=== PATIENT | female | born 1965 | race Hispanic/Latino ===

== ENCOUNTER 2017-11-06 20:16 | Emergency (ER) | payer SELFPAY ==
[2017-11-06] MEDS: OXYCODONE/APAP 5MG/325MG(BULK FOR ED) 1 TABLET PO (23:07)
== END 2017-11-06 23:11 | disposition home or self-care (01) ==
LOC: M ED 20:16
DX: R03.0 Elevated blood-pressure reading, without diagnosis of hypertension (principal); M54.5 Low back pain; M54.6 Pain in thoracic spine; X50.9XXA Other and unspecified overexertion or strenuous movements or postures, initial encounter; Y92.59 Other trade areas as the place of occurrence of the external cause; Y99.0 Civilian activity done for income or pay; E11.9 Type 2 diabetes mellitus without complications; Z88.0 Allergy status to penicillin
CPT/HCPCS: 99284

== ENCOUNTER → 2019-04-14 | Outpatient (CLI) | payer SELFPAY, OTHER ==
[~2019-04-14] MED LIST: IBUP80TA PO; PERC5TAB12 PO
[2019-04-14 10:36] LABS: HEMOGLOBIN A1c 11.7 %
[2019-04-14 11:04] LABS: ALT/SGPT 34 U/L (12-78); BILIRUBIN,TOTAL 0.2 MG/DL (0.2-1.0); BLOOD UREA NITROGEN 40 MG/DL (7-18); CALCIUM LEVEL 9.1 MG/DL (8.5-10.1); CARBON DIOXIDE LEVEL 28 MEQ/L (21-32); CHLORIDE LEVEL 96 MEQ/L (98-107); CHOLESTEROL LEVEL 206 MG/DL (<200); CHOLESTEROL RISK RATIO 5.722 (<5); CK-MB VALUE MASS 2.9 NG/ML (<3.6); CPK CREATINE PHOSPHOKINASE 128 U/L (26-192); CREATININE FOR GFR 1.64 MG/DL (0.55-1.30); GLOMERULAR FILTRATION RATE 34.8 (>51); GLUCOSE, FASTING 356 MG/DL (70-100); HDL CHOLESTEROL 36 MG/DL (>40); MB/CK RELATIVE INDEX 2.27 (< OR =4); NON-HDL-C 170 MG/DL; POTASSIUM SERUM 4.6 MEQ/L (3.5-5.1); SODIUM LEVEL 133 MEQ/L (136-145); TOTAL PROTEIN 6.8 GM/DL (6.4-8.2); TRIGLYCERIDES LEVEL 548 MG/DL (<150)
[2019-04-14 11:25] LABS: CREATININE, URINE 30.2 MG/DL
[2019-04-14 13:43] LABS: FREE T4 1.06 NG/DL (0.76-1.46)
== END ==
LOC: M PLALAB 08:14
PROVIDERS: ATTEND Nurse Practitioner Family
DX: R79.89 Other specified abnormal findings of blood chemistry (principal); E78.5 Hyperlipidemia, unspecified; E11.22 Type 2 diabetes mellitus with diabetic chronic kidney disease

== ENCOUNTER 2019-05-26 01:04 | Emergency (ER) | payer OTHER, SELFPAY ==
[~2019-05-26] VITALS: Ht 157.5 cm; Wt 88.3 kg
[2019-05-26] MEDS ORDERED: NAPROXEN 250 MG TAB PO ONE (05:15)
[2019-05-26] MEDS ORDERED: NAPR-837 PO (05:19)
[2019-05-26 05:53] VITALS: BP 142/79
--- NOTE | 2019-05-26 09:19 | REP ---
RIGHT ANKLE: Five views. HISTORY: Trauma. FINDINGS: Five views of the right ankle demonstrate a fairly marked diffuse swelling medially, laterally and anteriorly. There is Achilles and plantar calcaneal spurring. On the steep oblique view, there is a cortical disruption of the anterolateral surface of what I believe it is the medial malleolus. There is overlap here with the adjacent fibula. No other view shows a fracture. Ankle mortise is intact. No hindfoot fracture is seen. IMPRESSION: Nondisplaced and possibly incomplete fracture of the medial malleolus visible on only one view. There is fairly marked diffuse ankle swelling. Electronically Signed by Zeke Mcgill MD 05/26/2019 06:31 P
--- NOTE | 2019-05-30 13:15 | ED PDOC ---
Post-Departure Follow-Up Ammy Heredia, ED grit blaster, asked to call pt to review right ankle film, ask pt t o continue w crutches/splint, and to fu w ortho. formal report faxed to [facility]. Paula Flood MD May 30, 2019 13:15
== END 2019-05-26 05:53 | disposition home or self-care (01) ==
LOC: M ED 01:04
DX: S99.911A Unspecified injury of right ankle, initial encounter (principal); W22.8XXA Striking against or struck by other objects, initial encounter; Y92.89 Other specified places as the place of occurrence of the external cause; Y93.9 Activity, unspecified; Y99.0 Civilian activity done for income or pay; Z88.0 Allergy status to penicillin

== ENCOUNTER 2019-10-08 00:11 | Emergency (ER) | payer SELFPAY ==
[~2019-10-08] VITALS: Ht 157.5 cm; Wt 86.4 kg
[~2019-10-08 00:11] MED LIST changes: +NAPR-837 PO
[2019-10-08] MEDS ORDERED: NOVOINJ13 SUBQ (00:19)
[2019-10-08] MEDS ORDERED: SIMV20TA22 PO (00:21)
[2019-10-08] MEDS ORDERED: AMLO1TAB24 PO (00:21)
[2019-10-08] MEDS ORDERED: NAPROXEN 250 MG TAB PO ONE (02:00)
[2019-10-08] MEDS ORDERED: LIDOCAINE 4% CREAM 5GM (LMX4) TOP ONE (02:00)
--- NOTE | 2019-10-08 02:26 | REPVR ---
PROCEDURE INFORMATION: Exam: US Duplex Right Lower Extremity Veins, Limited Exam date and time: 10/08/2019 2:18 AM Age: 54 years old Clinical indication: Pain; Foot; Right; Additional info: Calf pain, walks all day TECHNIQUE: Imaging protocol: Real-time Duplex ultrasound of the Right Lower Extremity with 2-D arenas scale, color Doppler flow and spectral waveform analysis with image documentation. Limited exam was focused on the right lower extremity veins. COMPARISON: No relevant prior studies available. FINDINGS: Right deep veins: Unremarkable. The common femoral, femoral, proximal profunda femoral and popliteal veins are patent without thrombus. Normal Doppler waveforms. Normal compressibility and/or augmentation response. Right superficial veins: Unremarkable. Saphenofemoral junction is patent without thrombus. Soft tissues: Unremarkable. IMPRESSION: No evidence of deep vein thrombosis. Electronically signed by: Andrew Salas On 10/08/2019 02:25:53 AM
[2019-10-08] MEDS ORDERED: ASPE16CR TOP (03:09)
[2019-10-08] MEDS ORDERED: NAPR-837 PO (03:09)
[2019-10-08 03:23] VITALS: BP 128/72
== END 2019-10-08 03:28 | disposition home or self-care (01) ==
LOC: M ED 00:11
DX: M25.561 Pain in right knee (principal); M25.571 Pain in right ankle and joints of right foot; E11.9 Type 2 diabetes mellitus without complications; I10 Essential (primary) hypertension; Z79.4 Long term (current) use of insulin; Z79.899 Other long term (current) drug therapy; Z88.0 Allergy status to penicillin

== ENCOUNTER → 2021-01-07 | Outpatient (REF) | payer SELFPAY ==
[~2021-01-07] MED LIST changes: +AMLO1TAB24 PO; +ASPE16CR TOP; +NOVOINJ13 SUBQ; +SIMV20TA22 PO
[2021-01-07 22:19] LABS: HEMOGLOBIN A1c 12.7 %
== END ==
LOC: M LAB REF 21:46
PROVIDERS: ATTEND Physician Assistant Medical
DX: E11.9 Type 2 diabetes mellitus without complications (principal)

== ENCOUNTER → 2021-01-31 | Outpatient (CLI) | payer BC, MEDICAID ==
[2021-01-31 15:41] LABS: BASO # 0.1 10^3/uL (0.0-0.2); BASO % 0.6 % (0.0-1.0); EOS # 0.5 10^3/uL (0.0-0.5); EOS % 6.1 % (0.0-3.0); HEMATOCRIT 36.8 % (36.0-47.0); HEMOGLOBIN 12.4 g/dl (12.0-15.5); LYMPH # 2.7 10^3/uL (1.5-5.0); LYMPH % 33.5 % (24.0-44.0); MEAN CORPUSCULAR HEMOGLOBIN 29.2 pg (27.0-33.0); MEAN CORPUSCULAR HGB CONC 33.7 g/dl (32.0-36.5); MEAN CORPUSCULAR VOLUME 86.6 fl (80.0-96.0); MONO # 0.7 10^3/uL (0.0-0.8); MONO % 8.9 % (2.0-8.0); NEUTROPHILS # 4.1 10^3/uL (1.5-8.5); NEUTROPHILS % 50.3 % (36.0-66.0); PLATELET COUNT, AUTOMATED 309 10^3/uL (150-450); RED BLOOD COUNT 4.25 10^6/uL (4.00-5.40); WHITE BLOOD COUNT 8.1 10^3/uL (4.0-10.0)
[2021-01-31 16:14] LABS: ALBUMIN 2.7 GM/DL (3.2-5.2); BILIRUBIN,TOTAL 0.2 MG/DL (0.2-1.0); CALCIUM LEVEL 9.2 MG/DL (8.5-10.1); CHOLESTEROL RISK RATIO 4.375 (<5); CREATININE FOR GFR 2.75 MG/DL (0.55-1.30); FREE T4 0.98 NG/DL (0.76-1.46); THYROID STIMULATING HORMONE 8.58 uIU/ML (0.358-3.740); TOTAL PROTEIN 6.5 GM/DL (6.4-8.2)
[2021-01-31 16:39] LABS: CREATININE, URINE 32.1 MG/DL; MAU/CREAT RATIO 6760.1 MCG/MG (0.0-30.0)
== END ==
LOC: M PLALAB 12:12
PROVIDERS: ATTEND Nurse Practitioner Family
DX: E11.9 Type 2 diabetes mellitus without complications (principal)

== ENCOUNTER → 2021-05-09 | Outpatient (CLI) | payer BC ==
[2021-05-09 13:52] LABS: ALBUMIN 3.3 GM/DL (3.2-5.2); BILIRUBIN,TOTAL 0.2 MG/DL (0.2-1.0); CALCIUM LEVEL 8.6 MG/DL (8.5-10.1); CHOLESTEROL RISK RATIO 3.803 (<5); CREATININE FOR GFR 3.16 MG/DL (0.55-1.30); GLOMERULAR FILTRATION RATE 16.2 (>51); POTASSIUM SERUM 3.8 MEQ/L (3.5-5.1); TOTAL PROTEIN 6.9 GM/DL (6.4-8.2)
[2021-05-09 13:59] LABS: HEMOGLOBIN A1c 8.1 %
[2021-05-09 14:27] LABS: CREATININE, URINE 18.1 MG/DL
== END ==
LOC: M PLALAB 10:21
PROVIDERS: ATTEND Nurse Practitioner Family
DX: E11.22 Type 2 diabetes mellitus with diabetic chronic kidney disease (principal)

== ENCOUNTER → 2021-06-06 | Outpatient (REF) | payer BC, MEDICAID ==
[2021-06-09 18:03] LABS: PERCENT SATURATION 19.7 % (13.2-45.0)
[2021-06-09 18:34] LABS: CREATININE,RANDOM URINE 37.4 MG/DL; TOTAL PROTEIN,RANDOM URINE 392.2 MG/DL (0.0-12.0)
== END ==
LOC: M LAB REF 17:18
PROVIDERS: ATTEND Internal Medicine Nephrology
DX: N18.4 Chronic kidney disease, stage 4 (severe) (principal); D63.1 Anemia in chronic kidney disease

== ENCOUNTER → 2021-09-12 | Outpatient (CLI) | payer BC, MEDICAID ==
[2021-09-12 18:42] LABS: CHOLESTEROL RISK RATIO 4.148 (<5)
[2021-09-12 19:01] LABS: HEMOGLOBIN A1c 7.6 %
== END ==
LOC: M PLALAB 15:30
PROVIDERS: ATTEND Nurse Practitioner Family
DX: E11.22 Type 2 diabetes mellitus with diabetic chronic kidney disease (principal)

== ENCOUNTER → 2021-12-23 | Outpatient (REF) | payer BC, MEDICAID ==
[2021-12-24 18:22] LABS: PERCENT SATURATION 15.9 % (13.2-45.0)
== END ==
LOC: M LAB REF 16:49
PROVIDERS: ATTEND Internal Medicine Nephrology
DX: E61.1 Iron deficiency (principal)

== ENCOUNTER → 2022-01-16 | Outpatient (CLI) | payer BC, MEDICAID ==
[2022-01-16 10:36] LABS: BASO % 0.5 % (0.0-1.0); EOS # 0.4 10^3/uL (0.0-0.5); EOS % 5.3 % (0.0-3.0); HEMATOCRIT 33.9 % (36.0-47.0); LYMPH # 2.1 10^3/uL (1.5-5.0); LYMPH % 27.9 % (24.0-44.0); MEAN CORPUSCULAR HEMOGLOBIN 29.4 pg (27.0-33.0); MEAN CORPUSCULAR HGB CONC 32.4 g/dl (32.0-36.5); MEAN CORPUSCULAR VOLUME 90.6 fl (80.0-96.0); MONO # 0.5 10^3/uL (0.0-0.8); MONO % 6.5 % (2.0-8.0); NEUTROPHILS # 4.4 10^3/uL (1.5-8.5); PLATELET COUNT, AUTOMATED 305 10^3/uL (150-450); RED BLOOD COUNT 3.74 10^6/uL (4.00-5.40); WHITE BLOOD COUNT 7.5 10^3/uL (4.0-10.0)
[2022-01-16 11:10] LABS: HEMOGLOBIN A1c 7.4 %
[2022-01-16 11:40] LABS: ALBUMIN 3.2 GM/DL (3.2-5.2); BILIRUBIN,TOTAL 0.2 MG/DL (0.2-1.0); CALCIUM LEVEL 8.8 MG/DL (8.5-10.1); CHOLESTEROL RISK RATIO 3.292 (<5); CREATININE FOR GFR 3.83 MG/DL (0.55-1.30); FREE T4 0.82 NG/DL (0.76-1.46); GLOMERULAR FILTRATION RATE 12.9 (>51); POTASSIUM SERUM 4.6 MEQ/L (3.5-5.1); THYROID STIMULATING HORMONE 4.76 uIU/ML (0.358-3.740); TOTAL PROTEIN 6.8 GM/DL (6.4-8.2)
== END ==
LOC: M WUC 08:34 → M PLAIMG 08:34
PROVIDERS: ATTEND Nurse Practitioner Family
DX: E78.5 Hyperlipidemia, unspecified (principal); I12.9 Hypertensive chronic kidney disease with stage 1 through stage 4 chronic kidney disease, or unspecified chronic kidney disease; E11.22 Type 2 diabetes mellitus with diabetic chronic kidney disease; M54.6 Pain in thoracic spine; M54.59 Other low back pain; E53.8 Deficiency of other specified B group vitamins; N18.9 Chronic kidney disease, unspecified

== ENCOUNTER 2022-01-23 11:48 | Outpatient (CLI) | payer BC ==
[~2022-01-23] VITALS: Ht 157.5 cm; Wt 79.3 kg
[~2022-01-23 11:48] MED LIST changes: +ALBUTEROL SULFATE 2.5 MG/0.5 ML INH NEB SOLN INH PRN; +EPINEPHrine INJ 1 MG/ML 1ML AMP IM PRN; +diphenhydrAMINE 50MG/ML VIAL (J1200) IV PRN; +methylPREDNISolone 125MG 2ML VIAL IV PRN
[2022-01-23] MEDS ORDERED: FERRIC CARBOXYMALTOSE INJ 750 MG in NS 250 ML (>50kg) IV ONE ×3 (12:00)
[2022-01-23] MEDS ORDERED: NS 1,000 ML IV SCH (12:00)
[2022-01-23 12:10] VITALS: BP 168/90
[2022-01-23 14:35] VITALS: BP 160/84
== END 2022-01-23 14:35 | disposition home or self-care (01) ==
LOC: M INFU 11:48
PROVIDERS: ATTEND Internal Medicine Nephrology
DX: E61.1 Iron deficiency (principal); Z88.0 Allergy status to penicillin
CPT/HCPCS: 96365; 96366; J1439

== ENCOUNTER 2022-01-30 12:15 | Outpatient (CLI) | payer BC ==
[~2022-01-30] VITALS: Ht 157.5 cm; Wt 80.9 kg
[~2022-01-30 12:15] MED LIST changes: -diphenhydrAMINE 50MG/ML VIAL (J1200) IV PRN; +diphenhydrAMINE 50MG/ML VIAL IV PRN
[2022-01-30 12:25] VITALS: BP 158/76
[2022-01-30] MEDS ORDERED: NS 1,000 ML IV SCH (12:30)
[2022-01-30] MEDS ORDERED: FERRIC CARBOXYMALTOSE INJ 750 MG in NS 250 ML (>50kg) IV ONE ×3 (12:30)
[2022-01-30 14:00] VITALS: BP 142/71
== END 2022-01-30 14:00 | disposition home or self-care (01) ==
LOC: M INFU 12:15
PROVIDERS: ATTEND Internal Medicine Nephrology
DX: E61.1 Iron deficiency (principal); Z88.0 Allergy status to penicillin; Z88.8 Allergy status to other drugs, medicaments and biological substances
CPT/HCPCS: 96365; J1439

== ENCOUNTER 2022-03-20 12:34 | Outpatient (RCR) | payer BC ==
[~2022-03-20 12:34] MED LIST changes: -ALBUTEROL SULFATE 2.5 MG/0.5 ML INH NEB SOLN INH PRN; -EPINEPHrine INJ 1 MG/ML 1ML AMP IM PRN; -diphenhydrAMINE 50MG/ML VIAL IV PRN; -methylPREDNISolone 125MG 2ML VIAL IV PRN
== END 2022-03-21 ==
LOC: M PT 12:34
PROVIDERS: ATTEND Nurse Practitioner Family
DX: M54.59 Other low back pain (principal)

== ENCOUNTER 2022-04-03 14:22 | Outpatient (RCR) | payer BC | END 2022-04-21 | LOC: M PT 14:22 | PROVIDERS: ATTEND Nurse Practitioner Family | DX: M54.59 Other low back pain (principal); M54.6 Pain in thoracic spine ==

== ENCOUNTER → 2022-09-14 | Outpatient (REF) | payer BC, MEDICAID ==
[~2022-09-14] MED LIST changes: -ASPE16CR TOP; +LIDO76.52 TOP
[2022-09-15 11:28] LABS: BASO % 0.3 % (0.0-1.0); EOS # 0.5 10^3/uL (0.0-0.5); EOS % 5.5 % (0.0-3.0); HEMATOCRIT 29.3 % (36.0-47.0); HEMOGLOBIN 9.9 g/dl (12.0-15.5); LYMPH # 2.5 10^3/uL (1.5-5.0); MEAN CORPUSCULAR HEMOGLOBIN 30.7 pg (27.0-33.0); MEAN CORPUSCULAR HGB CONC 33.8 g/dl (32.0-36.5); MEAN CORPUSCULAR VOLUME 90.7 fl (80.0-96.0); MONO # 0.8 10^3/uL (0.0-0.8); MONO % 7.9 % (2.0-8.0); NEUTROPHILS # 5.9 10^3/uL (1.5-8.5); NEUTROPHILS % 59.9 % (36.0-66.0); PLATELET COUNT, AUTOMATED 264 10^3/uL (150-450); RED BLOOD COUNT 3.23 10^6/uL (4.00-5.40); WHITE BLOOD COUNT 9.9 10^3/uL (4.0-10.0)
[2022-09-15 11:51] LABS: CREATININE, URINE 26.3 MG/DL
[2022-09-15 11:53] LABS: ALBUMIN 3.2 G/DL (3.2-5.2); ALKALINE PHOSPHATASE 143 U/L (46-116); ALT/SGPT 13 U/L (7.0-40); AST/SGOT < 8 U/L (<34); BILIRUBIN,TOTAL < 0.2 MG/DL (0.3-1.2); BLOOD UREA NITROGEN 65 MG/DL (9-23); CALCIUM LEVEL 7.9 MG/DL (8.5-10.1); CARBON DIOXIDE LEVEL 21 MMOL/L (20-31); CHLORIDE LEVEL 101 MMOL/L (98-107); CHOLESTEROL LEVEL 147 MG/DL (<200); CHOLESTEROL RISK RATIO 4.63 (<5); CREATININE FOR GFR 5.11 MG/DL (0.55-1.30); GLOMERULAR FILTRATION RATE 9.2 (>51); GLUCOSE, FASTING 220 MG/DL (60-100); HDL CHOLESTEROL 31.7 MG/DL (>40); NON-HDL-C 115.3 MG/DL; POTASSIUM SERUM 4.2 MMOL/L (3.5-5.1); SODIUM LEVEL 132 MMOL/L (136-145); THYROID STIMULATING HORMONE 4.588 uIU/ML (0.55-4.78); TOTAL PROTEIN 6.1 G/DL (5.7-8.2); TRIGLYCERIDES LEVEL 477 MG/DL (<150)
[2022-09-15 12:08] LABS: MAU/CREAT RATIO 5247.1 MCG/MG (0.0-30.0)
[2022-09-15 12:32] LABS: HEMOGLOBIN A1c 7.3 % (4.0-6.0)
== END ==
LOC: M PLALAB 09:57
PROVIDERS: ATTEND Nurse Practitioner Family
DX: E11.22 Type 2 diabetes mellitus with diabetic chronic kidney disease (principal); E78.5 Hyperlipidemia, unspecified; I10 Essential (primary) hypertension

== ENCOUNTER → 2022-12-02 | Outpatient (CLI) | payer BC, MEDICAID ==
[2022-12-02 15:33] LABS: HEMATOCRIT 33.2 % (36.0-47.0); HEMOGLOBIN 10.9 g/dl (12.0-15.5); MEAN CORPUSCULAR HEMOGLOBIN 30.2 pg (27.0-33.0); MEAN CORPUSCULAR HGB CONC 32.8 g/dl (32.0-36.5); PLATELET COUNT, AUTOMATED 304 10^3/uL (150-450); RED BLOOD COUNT 3.61 10^6/uL (4.00-5.40)
[2022-12-02 16:07] LABS: ALBUMIN 3.4 G/DL (3.2-5.2); ALKALINE PHOSPHATASE 145 U/L (46-116); ALT/SGPT 19 U/L (7.0-40); AST/SGOT < 8 U/L (<34); BILIRUBIN,TOTAL 0.2 MG/DL (0.3-1.2); BLOOD UREA NITROGEN 77 MG/DL (9-23); CALCIUM LEVEL 8.9 MG/DL (8.5-10.1); CARBON DIOXIDE LEVEL 21 MMOL/L (20-31); CHLORIDE LEVEL 104 MMOL/L (98-107); CHOLESTEROL LEVEL 162 MG/DL (<200); CHOLESTEROL RISK RATIO 4.75 (<5); CREATININE FOR GFR 6.01 MG/DL (0.55-1.30); GLOMERULAR FILTRATION RATE 7.7 (>51); GLUCOSE, FASTING 153 MG/DL (60-100); HDL CHOLESTEROL 34.1 MG/DL (>40); LDL CHOLESTEROL 60.3 MG/DL (<100); NON-HDL-C 127.9 MG/DL; POTASSIUM SERUM 5.4 MMOL/L (3.5-5.1); SODIUM LEVEL 137 MMOL/L (136-145); TOTAL PROTEIN 6.6 G/DL (5.7-8.2); TRIGLYCERIDES LEVEL 338 MG/DL (<150)
[2022-12-02 16:08] LABS: CREATININE, URINE 53.2 MG/DL
[2022-12-02 16:23] LABS: MAU/CREAT RATIO 5246.2 MCG/MG (0.0-30.0)
[2022-12-02 16:32] LABS: ATYPICAL LYMPH 10 % (0-5); BASOPHILS 1 % (0-1); EOSINOPHILS 9 % (0-3); LYMPHOCYTES 29 % (16-44); MONOCYTES 5 % (0-5); NEUTROPHILS 45 % (28-66); PLATELET ESTIMATE NORMAL (NORMAL)
== END ==
LOC: M PLALAB 06:51
PROVIDERS: ATTEND Nurse Practitioner Family
DX: E11.9 Type 2 diabetes mellitus without complications (principal)

== ENCOUNTER → 2023-01-04 | Outpatient (CLI) | payer BC, MEDICAID | LOC: M PLALAB 08:41 | PROVIDERS: ATTEND Nurse Practitioner Family | DX: Z11.1 Encounter for screening for respiratory tuberculosis (principal) ==

== ENCOUNTER → 2023-04-23 | Outpatient (CLI) | payer BC, MEDICAID, SELFPAY ==
[~2023-04-23] MED LIST changes: +CARV3.12; +FURO40TA2; +HYDR100T; +HYDR12.55; +LISI10TA22; +SIMV40TA20
[2023-04-23 12:08] LABS: HEMOGLOBIN A1c 6.6 % (4.0-6.0)
[2023-04-23 12:12] LABS: CREATININE, URINE 47.1 MG/DL
[2023-04-23 12:32] LABS: ALBUMIN 3.2 G/DL (3.2-5.2); ALKALINE PHOSPHATASE 124 U/L (46-116); ALT/SGPT 13 U/L (7.0-40); AST/SGOT < 8 U/L (<34); BILIRUBIN,TOTAL < 0.2 MG/DL (0.3-1.2); BLOOD UREA NITROGEN 70 MG/DL (9-23); CALCIUM LEVEL 8.3 MG/DL (8.5-10.1); CARBON DIOXIDE LEVEL 20 MMOL/L (20-31); CHLORIDE LEVEL 102 MMOL/L (98-107); CHOLESTEROL LEVEL 121 MG/DL (<200); CHOLESTEROL RISK RATIO 3.52 (<5); CREATININE FOR GFR 8.18 MG/DL (0.55-1.30); GLOMERULAR FILTRATION RATE 5.4 (>51); GLUCOSE, FASTING 164 MG/DL (60-100); HDL CHOLESTEROL 34.3 MG/DL (>40); LDL CHOLESTEROL 38.1 MG/DL (<100); MAU/CREAT RATIO 3868.3 MCG/MG (0.0-30.0); NON-HDL-C 86.7 MG/DL; POTASSIUM SERUM 4.9 MMOL/L (3.5-5.1); SODIUM LEVEL 136 MMOL/L (136-145); TOTAL PROTEIN 6.5 G/DL (5.7-8.2); TRIGLYCERIDES LEVEL 243 MG/DL (<150)
== END ==
LOC: M PLALAB 06:59
PROVIDERS: ATTEND Nurse Practitioner Family
DX: E11.22 Type 2 diabetes mellitus with diabetic chronic kidney disease (principal); E78.5 Hyperlipidemia, unspecified

== ENCOUNTER 2023-04-24 10:48 | Emergency (ER) | payer SELFPAY ==
[~2023-04-24] VITALS: Ht 157.5 cm; Wt 88.2 kg
[~2023-04-24 10:48] MED LIST changes: -CARV3.12; -FURO40TA2; -HYDR100T; -HYDR12.55; -LISI10TA22; -SIMV40TA20
[2023-04-24] MEDS ORDERED: HYDR100T (11:51)
[2023-04-24] MEDS ORDERED: SIMV40TA20 (11:51)
[2023-04-24] MEDS ORDERED: LISI10TA22 (11:51)
[2023-04-24] MEDS ORDERED: HYDR12.55 (11:51)
[2023-04-24] MEDS ORDERED: FURO40TA2 (11:51)
[2023-04-24] MEDS ORDERED: CARV3.12 (11:51)
[2023-04-24 12:13] LABS: BASO % 0.4 % (0.0-1.0); EOS # 0.3 10^3/uL (0.0-0.5); EOS % 4.4 % (0.0-3.0); HEMOGLOBIN 9.5 g/dl (12.0-15.5); LYMPH # 1.5 10^3/uL (1.5-5.0); LYMPH % 20.6 % (24.0-44.0); MEAN CORPUSCULAR HEMOGLOBIN 30.4 pg (27.0-33.0); MEAN CORPUSCULAR HGB CONC 33.9 g/dl (32.0-36.5); MEAN CORPUSCULAR VOLUME 89.5 fl (80.0-96.0); MONO # 0.5 10^3/uL (0.0-0.8); MONO % 6.7 % (2.0-8.0); NEUTROPHILS % 67.2 % (36.0-66.0); PLATELET COUNT, AUTOMATED 286 10^3/uL (150-450); RED BLOOD COUNT 3.13 10^6/uL (4.00-5.40); WHITE BLOOD COUNT 7.5 10^3/uL (4.0-10.0)
[2023-04-24 12:37] LABS: CREATININE FOR GFR 7.93 MG/DL (0.55-1.30); GLOMERULAR FILTRATION RATE 5.6 (>51); PHOSPHORUS LEVEL 7.1 MG/DL (2.5-4.9); POTASSIUM SERUM 4.8 MMOL/L (3.5-5.1)
[2023-04-24 13:17] VITALS: BP 187/86; TEMP 97.3; O2SAT 99
== END 2023-04-24 13:20 | disposition home or self-care (01) ==
LOC: M ED 10:48
DX: N18.5 Chronic kidney disease, stage 5 (principal); E11.9 Type 2 diabetes mellitus without complications; I10 Essential (primary) hypertension; E66.9 Obesity, unspecified; Z79.4 Long term (current) use of insulin; Z79.899 Other long term (current) drug therapy; Z88.0 Allergy status to penicillin

== ENCOUNTER → 2023-05-03 | Outpatient (CLI) | payer SELFPAY ==
[~2023-05-03] MED LIST changes: +CARV3.12; +FURO40TA2; +HYDR100T; +HYDR12.55; +LISI10TA22; +SIMV40TA20
== END ==
LOC: M RAD 11:12
PROVIDERS: ATTEND Surgery
DX: N18.6 End stage renal disease (principal)

== ENCOUNTER → 2023-05-04 | Outpatient (CLI) | payer SELFPAY ==
[~2023-05-04] VITALS: Ht 165.1 cm; Wt 83.6 kg
[~2023-05-04] MED LIST changes: +HEPARIN 1,000UNITS/ML 10ML VIAL (FOR RADIOLOGY & DIALYSIS ONLY) As Ordered ONE; +LIDOCAINE 1% MDV 20ML VIAL As Ordered ONE; +LIDOCAINE W/EPINEPHRINE 1% 20ML VIAL As Ordered ONE; +MIDAZOLAM INJ 2MG/2ML VIAL As Ordered ONE; +VANCOMYCIN 1000MG/20ML VIAL As Ordered ONE; +VANCOMYCIN HCL 1,000 MG, VIAL MATE ADAPTER 1 EACH in D5W 250 ML IV ONE; +fentaNYL 100 MCG/2 ML INJECTION As Ordered ONE
[2023-05-04 13:29] VITALS: TEMP 97.7
[2023-05-04 14:00] LABS: INR 0.96; PROTHROMBIN TIME 12.5 SECONDS (12.5-14.5)
[2023-05-04 16:18] VITALS: BP 199/82; O2SAT 98
== END ==
LOC: M IRPRO 08:26
PROVIDERS: ATTEND Internal Medicine Nephrology
DX: N18.5 Chronic kidney disease, stage 5 (principal)
CPT/HCPCS: 36561; 77001; 85610; 99152; 99153; J2250; J3010; J3370

== ENCOUNTER 2023-05-11 04:54 | Emergency (ER) | payer SELFPAY ==
[~2023-05-11] VITALS: Ht 152.4 cm; Wt 81.8 kg
[~2023-05-11 04:54] MED LIST changes: -HEPARIN 1,000UNITS/ML 10ML VIAL (FOR RADIOLOGY & DIALYSIS ONLY) As Ordered ONE; -LIDOCAINE 1% MDV 20ML VIAL As Ordered ONE; -LIDOCAINE W/EPINEPHRINE 1% 20ML VIAL As Ordered ONE; -MIDAZOLAM INJ 2MG/2ML VIAL As Ordered ONE; -VANCOMYCIN 1000MG/20ML VIAL As Ordered ONE; -VANCOMYCIN HCL 1,000 MG, VIAL MATE ADAPTER 1 EACH in D5W 250 ML IV ONE; -fentaNYL 100 MCG/2 ML INJECTION As Ordered ONE
[2023-05-11 05:28] LABS: BASO % 0.3 % (0.0-1.0); EOS % 0.5 % (0.0-3.0); HEMATOCRIT 33.1 % (36.0-47.0); LYMPH # 1.1 10^3/uL (1.5-5.0); LYMPH % 14.3 % (24.0-44.0); MEAN CORPUSCULAR HEMOGLOBIN 30.5 pg (27.0-33.0); MEAN CORPUSCULAR HGB CONC 33.2 g/dl (32.0-36.5); MEAN CORPUSCULAR VOLUME 91.7 fl (80.0-96.0); MONO # 0.4 10^3/uL (0.0-0.8); MONO % 4.7 % (2.0-8.0); NEUTROPHILS # 6.1 10^3/uL (1.5-8.5); NEUTROPHILS % 79.7 % (36.0-66.0); PLATELET COUNT, AUTOMATED 271 10^3/uL (150-450); RED BLOOD COUNT 3.61 10^6/uL (4.00-5.40); WHITE BLOOD COUNT 7.6 10^3/uL (4.0-10.0)
[2023-05-11 05:39] LABS: INR 0.99; PROTHROMBIN TIME 12.8 SECONDS (12.5-14.5)
[2023-05-11 05:40] LABS: PARTIAL THROMBOPLASTIN TIME 30.4 SECONDS (24.8-34.2)
[2023-05-11 06:00] LABS: ALBUMIN 3.4 G/DL (3.2-5.2); ALKALINE PHOSPHATASE 98 U/L (46-116); ALT/SGPT 17 U/L (7.0-40); AST/SGOT 26 U/L (<34); BILIRUBIN,DIRECT < 0.1 MG/DL (<0.4); BILIRUBIN,TOTAL < 0.2 MG/DL (0.3-1.2); BLOOD UREA NITROGEN 35 MG/DL (9-23); CALCIUM LEVEL 8.8 MG/DL (8.5-10.1); CARBON DIOXIDE LEVEL 29 MMOL/L (20-31); CHLORIDE LEVEL 99 MMOL/L (98-107); CREATININE FOR GFR 4.46 MG/DL (0.55-1.30); GLOMERULAR FILTRATION RATE 10.8 (>51); GLUCOSE, FASTING 129 MG/DL (60-100); POTASSIUM SERUM 4.7 MMOL/L (3.5-5.1); SODIUM LEVEL 136 MMOL/L (136-145); TOTAL PROTEIN 6.8 G/DL (5.7-8.2)
[2023-05-11 06:02] LABS: FREE T4 1.38 NG/DL (0.89-1.76); THYROID STIMULATING HORMONE 2.773 uIU/ML (0.55-4.78)
[2023-05-11 12:02] VITALS: BP 160/77; TEMP 97.6; O2SAT 98
== END 2023-05-11 12:06 | disposition home or self-care (01) ==
LOC: M ED 04:54
DX: I12.0 Hypertensive chronic kidney disease with stage 5 chronic kidney disease or end stage renal disease (principal); E11.9 Type 2 diabetes mellitus without complications; Z87.891 Personal history of nicotine dependence; Z88.0 Allergy status to penicillin; Z79.4 Long term (current) use of insulin; Z79.899 Other long term (current) drug therapy

== ENCOUNTER 2023-07-22 16:31 | Emergency (ER) | payer MEDICAID, SELFPAY ==
[~2023-07-22] VITALS: Ht 157.5 cm; Wt 80.1 kg
[2023-07-22 20:05] LABS: BASO % 0.4 % (0.0-1.0); EOS # 0.4 10^3/uL (0.0-0.5); EOS % 5.3 % (0.0-3.0); HEMOGLOBIN 10.6 g/dl (12.0-15.5); LYMPH # 2.1 10^3/uL (1.5-5.0); LYMPH % 29.6 % (24.0-44.0); MEAN CORPUSCULAR HEMOGLOBIN 32.1 pg (27.0-33.0); MEAN CORPUSCULAR HGB CONC 34.2 g/dl (32.0-36.5); MEAN CORPUSCULAR VOLUME 93.9 fl (80.0-96.0); MONO # 0.6 10^3/uL (0.0-0.8); MONO % 8.3 % (2.0-8.0); PLATELET COUNT, AUTOMATED 228 10^3/uL (150-450); WHITE BLOOD COUNT 7.2 10^3/uL (4.0-10.0)
[2023-07-22 20:32] LABS: CALCIUM LEVEL 8.5 MG/DL (8.5-10.1); CREATININE FOR GFR 2.48 MG/DL (0.55-1.30); GLOMERULAR FILTRATION RATE 21.2 (>51); MAGNESIUM LEVEL 1.9 MG/DL (1.8-2.4); POTASSIUM SERUM 4.1 MMOL/L (3.5-5.1)
[2023-07-22 23:07] VITALS: BP 130/72; TEMP 98.6; O2SAT 98
== END 2023-07-22 23:08 | disposition home or self-care (01) ==
LOC: M ED 16:31
DX: H57.12 Ocular pain, left eye (principal); E11.9 Type 2 diabetes mellitus without complications; I10 Essential (primary) hypertension; E78.5 Hyperlipidemia, unspecified; Z88.0 Allergy status to penicillin; Z79.899 Other long term (current) drug therapy; Z79.4 Long term (current) use of insulin

== ENCOUNTER → 2023-09-20 | Outpatient (CLI) | payer MEDICAID ==
[2023-09-20 11:45] LABS: BASO % 0.4 % (0.0-1.0); EOS # 0.4 10^3/uL (0.0-0.5); EOS % 5.9 % (0.0-3.0); HEMATOCRIT 32.9 % (36.0-47.0); HEMOGLOBIN 11.1 g/dl (12.0-15.5); LYMPH # 2.2 10^3/uL (1.5-5.0); LYMPH % 29.9 % (24.0-44.0); MEAN CORPUSCULAR HEMOGLOBIN 31.5 pg (27.0-33.0); MEAN CORPUSCULAR HGB CONC 33.7 g/dl (32.0-36.5); MEAN CORPUSCULAR VOLUME 93.5 fl (80.0-96.0); MONO # 0.6 10^3/uL (0.0-0.8); MONO % 7.8 % (2.0-8.0); NEUTROPHILS # 4.1 10^3/uL (1.5-8.5); NEUTROPHILS % 54.7 % (36.0-66.0); PLATELET COUNT, AUTOMATED 275 10^3/uL (150-450); RED BLOOD COUNT 3.52 10^6/uL (4.00-5.40); WHITE BLOOD COUNT 7.5 10^3/uL (4.0-10.0)
[2023-09-20 12:03] LABS: HEMOGLOBIN A1c 8.8 % (4.0-6.0)
[2023-09-20 12:20] LABS: ALBUMIN 3.3 G/DL (3.2-5.2); ALKALINE PHOSPHATASE 141 U/L (46-116); ALT/SGPT 22 U/L (7.0-40); AST/SGOT 14 U/L (<34); BILIRUBIN,TOTAL 0.2 MG/DL (0.3-1.2); BLOOD UREA NITROGEN 53 MG/DL (9-23); CALCIUM LEVEL 8.8 MG/DL (8.5-10.1); CARBON DIOXIDE LEVEL 28 MMOL/L (20-31); CHLORIDE LEVEL 98 MMOL/L (98-107); CHOLESTEROL LEVEL 208 MG/DL (<200); CHOLESTEROL RISK RATIO 5.79 (<5); CREATININE FOR GFR 6.36 MG/DL (0.55-1.30); GLOMERULAR FILTRATION RATE 7.1 (>51); GLUCOSE, FASTING 190 MG/DL (60-100); HDL CHOLESTEROL 35.9 MG/DL (>40); NON-HDL-C 172.1 MG/DL; SODIUM LEVEL 135 MMOL/L (136-145); TOTAL PROTEIN 6.4 G/DL (5.7-8.2); TRIGLYCERIDES LEVEL 404 MG/DL (<150)
== END ==
LOC: M PLALAB 07:24
PROVIDERS: ATTEND Nurse Practitioner Family
DX: E78.5 Hyperlipidemia, unspecified (principal)

== ENCOUNTER → 2023-10-18 | Outpatient (CLI) | payer MEDICAID | LOC: M PLAIMG 16:15 | PROVIDERS: ATTEND Nurse Practitioner Family | DX: K59.09 Other constipation (principal) ==

== ENCOUNTER 2023-11-25 14:46 | Observation (INO) | payer MEDICAID, SELFPAY ==
[~2023-11-25 14:46] MED LIST changes: -FURO40TA2; +FURO40TA2 PO; -HYDR100T; +HYDR100T PO; -HYDR12.55; +HYDR12.55 PO
[2023-11-25 15:56] LABS: BASO % 0.4 % (0.0-1.0); EOS # 0.4 10^3/uL (0.0-0.5); EOS % 5.7 % (0.0-3.0); HEMATOCRIT 34.4 % (36.0-47.0); HEMOGLOBIN 11.7 g/dl (12.0-15.5); LYMPH # 1.8 10^3/uL (1.5-5.0); LYMPH % 24.3 % (24.0-44.0); MEAN CORPUSCULAR HEMOGLOBIN 32.6 pg (27.0-33.0); MEAN CORPUSCULAR VOLUME 95.8 fl (80.0-96.0); MONO # 0.5 10^3/uL (0.0-0.8); MONO % 7.5 % (2.0-8.0); NEUTROPHILS # 4.4 10^3/uL (1.5-8.5); NEUTROPHILS % 61.5 % (36.0-66.0); PLATELET COUNT, AUTOMATED 259 10^3/uL (150-450); RED BLOOD COUNT 3.59 10^6/uL (4.00-5.40); WHITE BLOOD COUNT 7.2 10^3/uL (4.0-10.0)
[2023-11-25 16:17] LABS: INR 0.88; PARTIAL THROMBOPLASTIN TIME 28.2 SECONDS (24.8-34.2); PROTHROMBIN TIME 11.7 SECONDS (12.5-14.5)
[2023-11-25 16:22] LABS: CALCIUM LEVEL 8.7 MG/DL (8.5-10.1); CREATININE FOR GFR 3.6 MG/DL (0.55-1.30); GLOMERULAR FILTRATION RATE 13.8 (>51); POTASSIUM SERUM 4.6 MMOL/L (3.5-5.1)
[2023-11-25 16:46] LABS: FREE T4 1.43 NG/DL (0.89-1.76); THYROID STIMULATING HORMONE 3.8 uIU/ML (0.55-4.78)
[2023-11-25] MEDS: LABETALOL 100MG/20ML VIAL IV STA ×2 (16:49→17:39)
[2023-11-25 17:37] LABS: CK-MB VALUE MASS 1.5 NG/ML (<3.6)
[2023-11-25 17:38] LABS: MB/CK RELATIVE INDEX 1.72 (< OR =4)
[2023-11-25] MEDS ORDERED: GLUCOSE 4 GM CHEW PO PRN (18:05)
[2023-11-25] MEDS ORDERED: DEXTROSE 50% 50ML SYRINGE IV PRN (18:05)
[2023-11-25] MEDS ORDERED: GLUCAGON INJ 1MG VIAL SC PRN (18:05)
[2023-11-25] MEDS: hydrALAZINE 20MG/ML 1ML VIAL IV ONE (18:40)
[2023-11-25] MEDS: cloNIDine 0.1MG TABLET PO ONE (18:40)
[2023-11-25] MEDS ORDERED: ISOVUE-370 76% 100ML VIAL As Ordered ONE (19:11)
[2023-11-25] MEDS ORDERED: cloNIDine 0.1MG TABLET PO PRN (19:15)
[2023-11-25] MEDS ORDERED: SIMV40TA20 PO (19:27)
[2023-11-25] MEDS ORDERED: EZET10TA21 PO (19:27)
[2023-11-25] MEDS ORDERED: LISI40TA4 PO (19:27)
[2023-11-25] MEDS ORDERED: DOCU100C16 PO (19:27)
[2023-11-25] MEDS ORDERED: CARV6.25 PO (19:27)
[2023-11-25] MEDS ORDERED: POLY510P14 PO (19:27)
[2023-11-25] MEDS ORDERED: HOME MED LIST COMPLETE! XX SCH (19:30)
[2023-11-25] MEDS: INSULIN LISPRO (NovoLOG) PER UNIT SC SCH (21:00)
[2023-11-25 21:16] VITALS: BP 137/64; TEMP 97; O2SAT 98
[2023-11-25] MEDS: SIMVASTATIN 40 MG TAB PO SCH (21:41)
[2023-11-25] MEDS: CARVedilol 6.25 MG TAB PO SCH (21:42)
[2023-11-25] MEDS: **hydrALAZINE** 50 MG TAB PO SCH (21:42)
[2023-11-26] MEDS: ACETAMINOPHEN TAB 650MG DOSE (2X325MG) PO ONE (00:46)
[2023-11-26 04:33] VITALS: BP 135/67; TEMP 96.8; O2SAT 98
[2023-11-26 06:56] LABS: HEMATOCRIT 30.5 % (36.0-47.0); HEMOGLOBIN 10.1 g/dl (12.0-15.5); MEAN CORPUSCULAR HEMOGLOBIN 32.1 pg (27.0-33.0); MEAN CORPUSCULAR HGB CONC 33.1 g/dl (32.0-36.5); MEAN CORPUSCULAR VOLUME 96.8 fl (80.0-96.0); PLATELET COUNT, AUTOMATED 206 10^3/uL (150-450); RED BLOOD COUNT 3.15 10^6/uL (4.00-5.40); WHITE BLOOD COUNT 5.8 10^3/uL (4.0-10.0)
[2023-11-26 07:37] LABS: ALKALINE PHOSPHATASE 117 U/L (46-116); ALT/SGPT 14 U/L (7.0-40); AST/SGOT < 8 U/L (<34); BILIRUBIN,TOTAL < 0.2 MG/DL (0.3-1.2); BLOOD UREA NITROGEN 32 MG/DL (9-23); CALCIUM LEVEL 8.7 MG/DL (8.5-10.1); CARBON DIOXIDE LEVEL 30 MMOL/L (20-31); CHLORIDE LEVEL 98 MMOL/L (98-107); CHOLESTEROL LEVEL 155 MG/DL (<200); CHOLESTEROL RISK RATIO 3.86 (<5); CREATININE FOR GFR 5.09 MG/DL (0.55-1.30); GLOMERULAR FILTRATION RATE 9.2 (>51); GLUCOSE, FASTING 164 MG/DL (60-100); HDL CHOLESTEROL 40.1 MG/DL (>40); LDL CHOLESTEROL 55.7 MG/DL (<100); MAGNESIUM LEVEL 2.1 MG/DL (1.8-2.4); NON-HDL-C 114.9 MG/DL; PHOSPHORUS LEVEL 6.2 MG/DL (2.5-4.9); POTASSIUM SERUM 5.8 MMOL/L (3.5-5.1); SODIUM LEVEL 131 MMOL/L (136-145); THYROID STIMULATING HORMONE 3.767 uIU/ML (0.55-4.78); TRIGLYCERIDES LEVEL 296 MG/DL (<150)
[2023-11-26 07:55] VITALS: BP 163/79; TEMP 98.1; O2SAT 94
[2023-11-26 08:03] LABS: HEMOGLOBIN A1c 7.7 % (4.0-6.0)
[2023-11-26] MEDS: INSULIN LISPRO (NovoLOG) PER UNIT SC SCH (08:11)
[2023-11-26] MEDS: hydroCHLOROthiazide 12.5 MG CAPSULE PO SCH (08:12)
[2023-11-26] MEDS: EZETIMIBE 10MG TABLET (ZETIA) PO SCH (08:12)
[2023-11-26] MEDS: MIRALAX *UNIT DOSE* 17GM PACKET PO SCH (08:13)
[2023-11-26] MEDS: FUROSEMIDE 20 MG TAB PO SCH (08:13)
[2023-11-26] MEDS: lisinopriL 40MG TAB PO SCH (08:13)
[2023-11-26] MEDS: DOCUSATE SODIUM 100MG CAPSULE PO SCH (08:13)
[2023-11-26 09:36] VITALS: BP 174/84
[2023-11-26] MEDS: NITROGLYCERIN 0.4MG SUBL TABLET SL STA (09:55)
[2023-11-26] MEDS: MORPHINE 2 MG/ML 1ML VIAL IV ONE (09:58)
[2023-11-26 10:47] LABS: CK-MB VALUE MASS < 1.0 NG/ML (<3.6)
[2023-11-26 10:48] LABS: CPK CREATINE PHOSPHOKINASE 63 U/L (34-145); MB/CK RELATIVE INDEX 1.58 (< OR =4)
[2023-11-26 11:19] VITALS: BP 175/82; TEMP 96.9; O2SAT 99
[2023-11-26] MEDS ORDERED: MINO2.5T PO (12:20)
[2023-11-26] MEDS: hydrALAZINE 20MG/ML 1ML VIAL IV PRN (12:22)
[2023-11-26] MEDS ORDERED: SELF1KIT MC (13:14)
[2023-11-26] MEDS ORDERED: CLONI1TA PO (13:14)
[2023-11-26] MEDS: hydrALAZINE 20MG/ML 1ML VIAL IV ONE (13:50)
[2023-11-26] MEDS ORDERED: HYDR100T26 PO (15:44)
[2023-11-26 16:05] VITALS: BP 114/56; TEMP 97.3; O2SAT 98
[2023-11-26 16:14] VITALS: BP 114/56
[2023-11-26] MEDS: **hydrALAZINE** 50 MG TAB PO ONE (16:14)
[2023-11-26] MEDS ORDERED: **hydrALAZINE** 50 MG TAB PO SCH (21:00)
== END 2023-11-26 20:37 | disposition home or self-care (01) ==
LOC: M ED 14:46 → EDBD 14:46 → M ED INP 14:47 → M PCU 21:14
PROVIDERS: ADMIT General Practice; ATTEND General Practice
DX: I16.9 Hypertensive crisis, unspecified (principal); N18.6 End stage renal disease; Z99.2 Dependence on renal dialysis; E11.22 Type 2 diabetes mellitus with diabetic chronic kidney disease; E66.3 Overweight; J30.9 Allergic rhinitis, unspecified; E78.5 Hyperlipidemia, unspecified; D63.1 Anemia in chronic kidney disease; R51.9 Headache, unspecified; M54.2 Cervicalgia; G50.1 Atypical facial pain; M54.50 Low back pain, unspecified; L29.8 Other pruritus; I51.7 Cardiomegaly; R09.89 Other specified symptoms and signs involving the circulatory and respiratory systems; I36.1 Nonrheumatic tricuspid (valve) insufficiency; I37.1 Nonrheumatic pulmonary valve insufficiency; Z90.710 Acquired absence of both cervix and uterus; Z98.891 History of uterine scar from previous surgery; Z96.89 Presence of other specified functional implants; Z82.49 Family history of ischemic heart disease and other diseases of the circulatory system; Z83.3 Family history of diabetes mellitus; Z88.0 Allergy status to penicillin; Z88.8 Allergy status to other drugs, medicaments and biological substances; Z79.899 Other long term (current) drug therapy; Z79.4 Long term (current) use of insulin
CPT/HCPCS: 36415; 70450; 71045; 71275; 80048; 80053; 80061; 82550; 82553; 83036; 83735; 84100; 84439; 84443; 84484; 85025; 85027; 85610; 85730; 93005; 93041; 93306; 94760; 96374; 96375; 96376; 99285; J0360; J1815; J1920; Q9967; S0139

== ENCOUNTER 2023-12-02 09:39 | Inpatient (IN) | payer MEDICAID ==
[~2023-12-02] VITALS: Ht 165.1 cm; Wt 85.5 kg
[~2023-12-02 09:39] MED LIST changes: +CARV6.25 PO; +CLONI1TA PO; +DOCU100C16 PO; +EZET10TA21 PO; +HYDR100T26 PO; +LISI40TA4 PO; +MINO2.5T PO; +POLY510P14 PO; +SELF1KIT MC; +SIMV40TA20 PO
[2023-12-02] MEDS: hydrALAZINE 20MG/ML 1ML VIAL IV ONE (13:02)
[2023-12-02 13:04] LABS: BASO % 0.7 % (0.0-1.0); EOS # 0.3 10^3/uL (0.0-0.5); EOS % 4.5 % (0.0-3.0); HEMATOCRIT 30.4 % (36.0-47.0); HEMOGLOBIN 10.3 g/dl (12.0-15.5); LYMPH # 1.7 10^3/uL (1.5-5.0); LYMPH % 27.6 % (24.0-44.0); MEAN CORPUSCULAR HEMOGLOBIN 32.3 pg (27.0-33.0); MEAN CORPUSCULAR HGB CONC 33.9 g/dl (32.0-36.5); MEAN CORPUSCULAR VOLUME 95.3 fl (80.0-96.0); MONO # 0.6 10^3/uL (0.0-0.8); MONO % 9.4 % (2.0-8.0); NEUTROPHILS # 3.5 10^3/uL (1.5-8.5); NEUTROPHILS % 57.6 % (36.0-66.0); PLATELET COUNT, AUTOMATED 238 10^3/uL (150-450); RED BLOOD COUNT 3.19 10^6/uL (4.00-5.40); WHITE BLOOD COUNT 6.1 10^3/uL (4.0-10.0)
[2023-12-02 13:19] LABS: INR 0.98; PARTIAL THROMBOPLASTIN TIME 36.3 SECONDS (24.8-34.2); PROTHROMBIN TIME 12.7 SECONDS (12.5-14.5)
[2023-12-02 13:31] LABS: LIPASE 68 U/L (12-53)
[2023-12-02 13:33] LABS: ALBUMIN 3.5 G/DL (3.2-5.2); ALKALINE PHOSPHATASE 114 U/L (46-116); ALT/SGPT 19 U/L (7.0-40); AST/SGOT 12 U/L (<34); BILIRUBIN,DIRECT < 0.1 MG/DL (<0.4); BILIRUBIN,TOTAL < 0.2 MG/DL (0.3-1.2); BLOOD UREA NITROGEN 32 MG/DL (9-23); CALCIUM LEVEL 8.3 MG/DL (8.5-10.1); CARBON DIOXIDE LEVEL 26 MMOL/L (20-31); CHLORIDE LEVEL 100 MMOL/L (98-107); CK-MB VALUE MASS < 1.0 NG/ML (<3.6); CREATININE FOR GFR 6.32 MG/DL (0.55-1.30); GLOMERULAR FILTRATION RATE 7.2 (>51); GLUCOSE, FASTING 100 MG/DL (60-100); POTASSIUM SERUM 5.6 MMOL/L (3.5-5.1); SODIUM LEVEL 131 MMOL/L (136-145); TOTAL PROTEIN 6.7 G/DL (5.7-8.2)
[2023-12-02 13:35] LABS: THYROID STIMULATING HORMONE 4.126 uIU/ML (0.55-4.78)
[2023-12-02 13:36] LABS: FREE T4 1.21 NG/DL (0.89-1.76)
[2023-12-02 13:39] LABS: CPK CREATINE PHOSPHOKINASE 121 U/L (34-145); MB/CK RELATIVE INDEX 0.82 (< OR =4)
[2023-12-02] MEDS ORDERED: ISOVUE-370 76% 100ML VIAL As Ordered ONE (14:05)
[2023-12-02 14:12] LABS: MAGNESIUM LEVEL 2.1 MG/DL (1.8-2.4)
[2023-12-02] MEDS: PATIROMER SORBITEX CALCIUM 8.4 GM POWDER PACKET (VELTASSA) PO ONE (14:16)
[2023-12-02] MEDS: ASPIRIN 81MG CHEW TABLET PO ONE (14:45)
[2023-12-02] MEDS: ONDANSETRON 4MG 2ML VIAL IV ONE (14:52)
[2023-12-02] MEDS: NITROGLYCERIN 2% OINT 1 GM *U/D* PKT TOP ONE (14:52)
[2023-12-02] MEDS: MORPHINE 4 MG/ML 1ML VIAL IV ONE (14:54)
[2023-12-02] MEDS: FUROSEMIDE 40MG/4ML VIAL IV ONE (15:31)
[2023-12-02] MEDS: LABETALOL 100MG/20ML VIAL IV STA (15:36)
[2023-12-02 16:30] LABS: CK-MB VALUE MASS < 1.0 NG/ML (<3.6)
[2023-12-02 16:31] LABS: CPK CREATINE PHOSPHOKINASE 94 U/L (34-145); MB/CK RELATIVE INDEX 1.06 (< OR =4)
[2023-12-02] MEDS: NS 1,000 ML IV ONE (17:05)
[2023-12-02] MEDS ORDERED: HumuLIN R (REGULAR) INSULIN (NovoLIN R) **100U/ML** PER UNIT IV STA ×2 (19:41→21:50)
[2023-12-02] MEDS ORDERED: DEXTROSE 50% 50ML SYRINGE IV STA (19:41)
[2023-12-02] MEDS ORDERED: GLUCOSE 4 GM CHEW PO PRN (19:45)
[2023-12-02] MEDS ORDERED: DEXTROSE 50% 50ML SYRINGE IV PRN (19:45)
[2023-12-02] MEDS ORDERED: cloNIDine 0.1MG TABLET PO PRN (19:45)
[2023-12-02] MEDS ORDERED: GLUCAGON INJ 1MG VIAL SC PRN (19:45)
[2023-12-02] MEDS ORDERED: CALCIUM GLUCONATE 1,000 MG in D5W MINI-BAG PLUS 100 ML IV ONE (19:45)
[2023-12-02] MEDS ORDERED: NS 1,000 ML IV SCH (19:45)
[2023-12-02] MEDS ORDERED: LEXA1TAB PO (19:47)
[2023-12-02] MEDS ORDERED: med rec comment (19:48)
[2023-12-02] MEDS ORDERED: HOME MED LIST COMPLETE! XX SCH (19:50)
[2023-12-02] MEDS: hydrALAZINE 20MG/ML 1ML VIAL IV STA (20:06)
[2023-12-02] MEDS: FUROSEMIDE 100MG/10ML VIAL IV ONE (20:15)
[2023-12-02] MEDS: MIRALAX *UNIT DOSE* 17GM PACKET PO SCH (21:00)
[2023-12-02] MEDS: INSULIN LISPRO (NovoLOG) PER UNIT SC SCH (21:00)
[2023-12-02 21:46] LABS: CALCIUM LEVEL 8.2 MG/DL (8.5-10.1); CHOLESTEROL RISK RATIO 2.69 (<5); CREATININE FOR GFR 6.49 MG/DL (0.55-1.30); HDL CHOLESTEROL 42.6 MG/DL (>40); LDL CHOLESTEROL 42.2 MG/DL (<100); NON-HDL-C 72.4 MG/DL; POTASSIUM SERUM 6.7 MMOL/L (3.5-5.1)
[2023-12-02] MEDS: HumuLIN R (REGULAR) INSULIN (NovoLIN R) **100U/ML** PER UNIT IV STA (22:05)
[2023-12-02] MEDS: DEXTROSE 50% 50ML SYRINGE IV STA (22:16)
[2023-12-02] MEDS: SIMVASTATIN 40 MG TAB PO SCH (22:25)
[2023-12-02] MEDS: CALCIUM GLUCONATE 1,000 MG in D5W MINI-BAG PLUS 100 ML IV ONE (22:25)
[2023-12-02] MEDS: ESCITALOPRAM OXALATE 10 MG TAB (LEXAPRO) PO SCH (22:30)
[2023-12-02] MEDS: **hydrALAZINE** 50 MG TAB PO SCH (22:31)
[2023-12-02] MEDS: CARVedilol 6.25 MG TAB PO SCH (22:32)
[2023-12-03] VITALS (28 sets, daily range): BP systolic 118–155; BP diastolic 4–74; TEMP 97–98.1; O2SAT 90–100
[2023-12-03] MEDS ORDERED: PERMETHRIN 5% CREAM 60 GM TOP SCH
[2023-12-03] MEDS: SOD POLYSTYRENE SULFONATE SUSP 15GM 60ML UD PO ONE (00:44)
[2023-12-03 00:54] LABS: CALCIUM LEVEL 8.4 MG/DL (8.5-10.1); CREATININE FOR GFR 6.77 MG/DL (0.55-1.30); GLOMERULAR FILTRATION RATE 6.6 (>51); MAGNESIUM LEVEL 2.1 MG/DL (1.8-2.4)
[2023-12-03] MEDS: ONDANSETRON 4MG 2ML VIAL IV ONE (01:11)
[2023-12-03] MEDS: ACETAMINOPHEN TAB 650MG DOSE (2X325MG) PO ONE (02:55)
[2023-12-03 04:28] LABS: HEMATOCRIT 30.3 % (36.0-47.0); MEAN CORPUSCULAR HEMOGLOBIN 32.2 pg (27.0-33.0); MEAN CORPUSCULAR VOLUME 97.4 fl (80.0-96.0); PLATELET COUNT, AUTOMATED 240 10^3/uL (150-450); RED BLOOD COUNT 3.11 10^6/uL (4.00-5.40); WHITE BLOOD COUNT 6.1 10^3/uL (4.0-10.0)
[2023-12-03 05:07] LABS: ALKALINE PHOSPHATASE 93 U/L (46-116); ALT/SGPT 13 U/L (7.0-40); AST/SGOT 11 U/L (<34); BILIRUBIN,TOTAL < 0.2 MG/DL (0.3-1.2); BLOOD UREA NITROGEN 36 MG/DL (9-23); CALCIUM LEVEL 8.5 MG/DL (8.5-10.1); CARBON DIOXIDE LEVEL 24 MMOL/L (20-31); CHLORIDE LEVEL 102 MMOL/L (98-107); CREATININE FOR GFR 6.87 MG/DL (0.55-1.30); GLOMERULAR FILTRATION RATE 6.5 (>51); GLUCOSE, FASTING 107 MG/DL (60-100); MAGNESIUM LEVEL 2.2 MG/DL (1.8-2.4); POTASSIUM SERUM 6.4 MMOL/L (3.5-5.1); SODIUM LEVEL 131 MMOL/L (136-145)
[2023-12-03] MEDS ORDERED: SODIUM CHLORIDE 0.9% 1000ML IV PRN (06:00)
[2023-12-03] MEDS ORDERED: HEPARIN 1,000UNITS/ML 10ML VIAL (FOR RADIOLOGY & DIALYSIS ONLY) IV PRN (06:00)
[2023-12-03] MEDS: INSULIN LISPRO (NovoLOG) PER UNIT SC SCH (07:30)
[2023-12-03] MEDS ORDERED: FUROSEMIDE 40MG/4ML VIAL IV ONE (08:00)
[2023-12-03] MEDS ORDERED: lisinopriL 40MG TAB PO SCH (09:00)
[2023-12-03] MEDS ORDERED: FUROSEMIDE 20 MG TAB PO SCH (09:00)
[2023-12-03] MEDS: PATIROMER SORBITEX CALCIUM 8.4 GM POWDER PACKET (VELTASSA) PO ONE (09:00)
[2023-12-03] MEDS ORDERED: ASPIRIN 325 MG TAB PO SCH (09:00)
[2023-12-03] MEDS ORDERED: hydroCHLOROthiazide 12.5 MG CAPSULE PO SCH (09:00)
[2023-12-03] MEDS: HEPARIN 1,000UNITS/ML 10ML VIAL (FOR RADIOLOGY & DIALYSIS ONLY) XX SCH (09:29)
[2023-12-03 10:54] LABS: HEMOGLOBIN A1c 7.3 % (4.0-6.0)
[2023-12-03] MEDS: CALCIUM GLUCONATE 1,000 MG in D5W MINI-BAG PLUS 100 ML IV ONE (13:39)
[2023-12-03] MEDS: EZETIMIBE 10MG TABLET (ZETIA) PO SCH (13:39)
[2023-12-03] MEDS: DOCUSATE SODIUM 100MG CAPSULE PO SCH (13:41)
[2023-12-03] MEDS: ASPIRIN 81MG ENTERIC TABLET PO SCH (13:41)
[2023-12-03] MEDS: HEPARIN SOD (PORCINE) 5000UNITS/ML 1ML VIAL/SYRINGE SQ SCH (13:42)
[2023-12-03 16:42] LABS: CALCIUM LEVEL 8.4 MG/DL (8.5-10.1); CREATININE FOR GFR 3.19 MG/DL (0.55-1.30); GLOMERULAR FILTRATION RATE 15.8 (>51); POTASSIUM SERUM 3.8 MMOL/L (3.5-5.1)
[2023-12-03] MEDS: ACETAMINOPHEN TAB 650MG DOSE (2X325MG) PO PRN (17:38)
[2023-12-03] MEDS: CARVedilol 12.5 MG TAB PO SCH (22:28)
[2023-12-03] MEDS: PERMETHRIN 5% CREAM 60 GM TOP ONE (22:29)
[2023-12-04] VITALS (13 sets, daily range): BP systolic 126–147; BP diastolic 58–64; TEMP 97–97.8; O2SAT 91–99
[2023-12-04] MEDS ORDERED: SODIUM CHLORIDE 0.9% 1000ML IV PRN (06:00)
[2023-12-04] MEDS ORDERED: HEPARIN 1,000UNITS/ML 10ML VIAL (FOR RADIOLOGY & DIALYSIS ONLY) IV PRN (06:00)
[2023-12-04] MEDS ORDERED: LIDOCAINE 1% SDV 5ML VIAL SC PRN (06:00)
[2023-12-04 08:47] LABS: CREATININE FOR GFR 4.74 MG/DL (0.55-1.30); POTASSIUM SERUM 4.7 MMOL/L (3.5-5.1)
[2023-12-04] MEDS: HEPARIN 1,000UNITS/ML 10ML VIAL (FOR RADIOLOGY & DIALYSIS ONLY) XX SCH (08:51)
[2023-12-04] MEDS ORDERED: CARV12.5 PO (12:52)
[2023-12-04] MEDS ORDERED: ASPI81TAEC PO (12:52)
== END 2023-12-04 16:06 | disposition home or self-care (01) | DRG 199 ==
LOC: MERGE 09:39 → M ED 09:39 → M ED INP 19:41 → M PCU 12-03 00:28
PROVIDERS: ADMIT Family Medicine; ATTEND Internal Medicine
PROC: 5A1D70Z Performance of Urinary Filtration, Intermittent, Less than 6 Hours Per Day (ICD-10-PCS; principal; 2023-12-03)
DX: I16.9 Hypertensive crisis, unspecified (principal); N18.6 End stage renal disease; E11.22 Type 2 diabetes mellitus with diabetic chronic kidney disease; E87.5 Hyperkalemia; E87.1 Hypo-osmolality and hyponatremia; F32.A Depression, unspecified; R55 Syncope and collapse; Z99.2 Dependence on renal dialysis; D63.1 Anemia in chronic kidney disease; E78.5 Hyperlipidemia, unspecified; Z79.82 Long term (current) use of aspirin; Z79.899 Other long term (current) drug therapy; Z88.0 Allergy status to penicillin; Z88.8 Allergy status to other drugs, medicaments and biological substances; Z91.158 Patient's noncompliance with renal dialysis for other reason; I12.0 Hypertensive chronic kidney disease with stage 5 chronic kidney disease or end stage renal disease

== ENCOUNTER 2023-12-05 17:46 | Emergency (ER) | payer MEDICAID ==
[~2023-12-05] VITALS: Ht 165.1 cm; Wt 85.5 kg
[~2023-12-05 17:46] MED LIST changes: +ASPI81TAEC PO; +CARV12.5 PO; +LEXA1TAB PO; +med rec comment
[2023-12-05 18:33] VITALS: TEMP 96
[2023-12-05 19:15] LABS: HEMOGLOBIN 10.2 g/dl (12.0-15.5); MEAN CORPUSCULAR HEMOGLOBIN 32.1 pg (27.0-33.0); MEAN CORPUSCULAR VOLUME 94.3 fl (80.0-96.0); PLATELET COUNT, AUTOMATED 260 10^3/uL (150-450); RED BLOOD COUNT 3.18 10^6/uL (4.00-5.40); WHITE BLOOD COUNT 7.1 10^3/uL (4.0-10.0)
[2023-12-05 19:42] LABS: ALBUMIN 3.5 G/DL (3.2-5.2); ALKALINE PHOSPHATASE 100 U/L (46-116); ALT/SGPT 14 U/L (7.0-40); AST/SGOT 9 U/L (<34); BILIRUBIN,TOTAL < 0.2 MG/DL (0.3-1.2); BLOOD UREA NITROGEN 29 MG/DL (9-23); CALCIUM LEVEL 8.7 MG/DL (8.5-10.1); CARBON DIOXIDE LEVEL 28 MMOL/L (20-31); CHLORIDE LEVEL 99 MMOL/L (98-107); GLOMERULAR FILTRATION RATE 9.2 (>51); GLUCOSE, FASTING 211 MG/DL (60-100); POTASSIUM SERUM 3.8 MMOL/L (3.5-5.1); SODIUM LEVEL 134 MMOL/L (136-145); TOTAL PROTEIN 6.6 G/DL (5.7-8.2)
[2023-12-05 21:40] VITALS: BP 172/94; O2SAT 99
== END 2023-12-05 21:42 | disposition home or self-care (01) ==
LOC: EDBD 17:46 → M ED 17:46
DX: E11.649 Type 2 diabetes mellitus with hypoglycemia without coma (principal); I12.0 Hypertensive chronic kidney disease with stage 5 chronic kidney disease or end stage renal disease; Z88.0 Allergy status to penicillin; Z88.8 Allergy status to other drugs, medicaments and biological substances; Z79.1 Long term (current) use of non-steroidal anti-inflammatories (NSAID); Z79.899 Other long term (current) drug therapy

== ENCOUNTER 2023-12-08 21:28 | Emergency (ER) | payer MEDICAID, SELFPAY ==
[~2023-12-08] VITALS: Ht 165.1 cm; Wt 82.4 kg
[2023-12-08 22:36] LABS: VENOUS HCO3 27.1 MMOL/L (23.0-27.0); VENOUS O2 SATURATION 99.1 % (60.0-80.0); VENOUS PARTIAL PRESSURE O2 175.4 mmHg (30.0-50.0); VENOUS PH 7.506 UNITS (7.330-7.430); VENOUS STANDARD HCO3 28.1 MMOL/L; VENOUS TOTAL CO2 28.1 MMOL/L (24.0-28.0)
[2023-12-08 22:43] LABS: BASO # 0.1 10^3/uL (0.0-0.2); BASO % 0.7 % (0.0-1.0); EOS # 0.2 10^3/uL (0.0-0.5); EOS % 3.2 % (0.0-3.0); HEMATOCRIT 28.3 % (36.0-47.0); HEMOGLOBIN 9.7 g/dl (12.0-15.5); LYMPH # 2.1 10^3/uL (1.5-5.0); LYMPH % 29.3 % (24.0-44.0); MEAN CORPUSCULAR HGB CONC 34.3 g/dl (32.0-36.5); MEAN CORPUSCULAR VOLUME 93.4 fl (80.0-96.0); MONO # 0.9 10^3/uL (0.0-0.8); MONO % 12.4 % (2.0-8.0); NEUTROPHILS # 3.9 10^3/uL (1.5-8.5); NEUTROPHILS % 54.3 % (36.0-66.0); PLATELET COUNT, AUTOMATED 265 10^3/uL (150-450); RED BLOOD COUNT 3.03 10^6/uL (4.00-5.40); WHITE BLOOD COUNT 7.1 10^3/uL (4.0-10.0)
[2023-12-08] MEDS: methocarbamoL 500 MG TAB PO ONE (23:07)
[2023-12-08 23:11] LABS: CK-MB VALUE MASS < 1.0 NG/ML (<3.6)
[2023-12-08 23:13] LABS: ALBUMIN 3.4 G/DL (3.2-5.2); ALKALINE PHOSPHATASE 96 U/L (46-116); ALT/SGPT 13 U/L (7.0-40); AST/SGOT < 8 U/L (<34); BILIRUBIN,DIRECT < 0.1 MG/DL (<0.4); BILIRUBIN,TOTAL < 0.2 MG/DL (0.3-1.2); BLOOD UREA NITROGEN 38 MG/DL (9-23); CALCIUM LEVEL 8.9 MG/DL (8.5-10.1); CARBON DIOXIDE LEVEL 28 MMOL/L (20-31); CHLORIDE LEVEL 100 MMOL/L (98-107); CPK CREATINE PHOSPHOKINASE 82 U/L (34-145); GLOMERULAR FILTRATION RATE 8.3 (>51); GLUCOSE, FASTING 164 MG/DL (60-100); MB/CK RELATIVE INDEX 1.21 (< OR =4); POTASSIUM SERUM 4.1 MMOL/L (3.5-5.1); SODIUM LEVEL 134 MMOL/L (136-145); TOTAL PROTEIN 6.4 G/DL (5.7-8.2)
[2023-12-08 23:15] LABS: THYROID STIMULATING HORMONE 4.987 uIU/ML (0.55-4.78); THYROXINE (T4) 9.6 UG/DL (4.5-10.9)
[2023-12-08] MEDS: LORazepam 2 MG/ML 1ML VIAL IV STA (23:38)
[2023-12-09 01:00] VITALS: BP 128/60; TEMP 97.6; O2SAT 98
== END 2023-12-09 02:10 | disposition home or self-care (01) ==
LOC: M ED 21:28
DX: M62.830 Muscle spasm of back (principal); F41.9 Anxiety disorder, unspecified; R06.4 Hyperventilation; R94.31 Abnormal electrocardiogram [ECG] [EKG]; E11.9 Type 2 diabetes mellitus without complications; I12.0 Hypertensive chronic kidney disease with stage 5 chronic kidney disease or end stage renal disease; Z88.0 Allergy status to penicillin; Z79.1 Long term (current) use of non-steroidal anti-inflammatories (NSAID); Z79.899 Other long term (current) drug therapy
CPT/HCPCS: 80048; 80076; 82550; 82553; 82803; 83605; 83880; 84436; 84443; 84484; 85025; 93005; 96374; 99284; J2060

== ENCOUNTER 2023-12-25 22:16 | Emergency (ER) | payer MEDICAID ==
[~2023-12-25] VITALS: Ht 165.1 cm; Wt 83.6 kg
[2023-12-25 22:50] LABS: BASO % 0.4 % (0.0-1.0); EOS # 0.2 10^3/uL (0.0-0.5); HEMATOCRIT 27.9 % (36.0-47.0); HEMOGLOBIN 9.6 g/dl (12.0-15.5); LYMPH # 1.7 10^3/uL (1.5-5.0); LYMPH % 32.8 % (24.0-44.0); MEAN CORPUSCULAR HEMOGLOBIN 32.1 pg (27.0-33.0); MEAN CORPUSCULAR HGB CONC 34.4 g/dl (32.0-36.5); MEAN CORPUSCULAR VOLUME 93.3 fl (80.0-96.0); MONO # 0.5 10^3/uL (0.0-0.8); MONO % 10.1 % (2.0-8.0); NEUTROPHILS # 2.8 10^3/uL (1.5-8.5); NEUTROPHILS % 52.3 % (36.0-66.0); PLATELET COUNT, AUTOMATED 180 10^3/uL (150-450); RED BLOOD COUNT 2.99 10^6/uL (4.00-5.40); WHITE BLOOD COUNT 5.3 10^3/uL (4.0-10.0)
[2023-12-25 23:21] LABS: BLOOD UREA NITROGEN 14 MG/DL (9-23); CARBON DIOXIDE LEVEL 32 MMOL/L (20-31); CHLORIDE LEVEL 97 MMOL/L (98-107); CK-MB VALUE MASS < 1.0 NG/ML (<3.6); CPK CREATINE PHOSPHOKINASE 53 U/L (34-145); CREATININE FOR GFR 3.36 MG/DL (0.55-1.30); GLOMERULAR FILTRATION RATE 14.9 (>51); GLUCOSE, FASTING 165 MG/DL (60-100); MB/CK RELATIVE INDEX 1.88 (< OR =4); POTASSIUM SERUM 3.4 MMOL/L (3.5-5.1); SODIUM LEVEL 134 MMOL/L (136-145)
[2023-12-26 00:20] LABS: CK-MB VALUE MASS < 1.0 NG/ML (<3.6)
[2023-12-26 00:22] LABS: CPK CREATINE PHOSPHOKINASE 70 U/L (34-145); MB/CK RELATIVE INDEX 1.42 (< OR =4)
[2023-12-26 00:35] LABS: LIPASE 44 U/L (12-53)
[2023-12-26 00:37] LABS: ALBUMIN 3.2 G/DL (3.2-5.2); ALKALINE PHOSPHATASE 82 U/L (46-116); ALT/SGPT 10 U/L (7.0-40); AST/SGOT 9 U/L (<34); BILIRUBIN,DIRECT < 0.1 MG/DL (<0.4); BILIRUBIN,TOTAL < 0.2 MG/DL (0.3-1.2); TOTAL PROTEIN 6.2 G/DL (5.7-8.2)
[2023-12-26] MEDS: ONDANSETRON 4MG 2ML VIAL IV ONE (00:41)
[2023-12-26] MEDS: MORPHINE 4 MG/ML 1ML VIAL IV ONE (00:42)
[2023-12-26 06:31] VITALS: TEMP 97.8
[2023-12-26 06:56] VITALS: BP 124/65; O2SAT 99
== END 2023-12-26 06:58 | disposition short-term general hospital (02) ==
LOC: M ED 22:16
DX: I61.3 Nontraumatic intracerebral hemorrhage in brain stem (principal); I25.2 Old myocardial infarction; I10 Essential (primary) hypertension; E78.5 Hyperlipidemia, unspecified; Z88.0 Allergy status to penicillin; Z79.1 Long term (current) use of non-steroidal anti-inflammatories (NSAID); Z79.899 Other long term (current) drug therapy
CPT/HCPCS: 70450; 71045; 71250; 72125; 74176; 80048; 80076; 82550; 82553; 83690; 84484; 85025; 87486; 87581; 87633; 87798; 93005; 93041; 94760; 96374; 96375; 99285; J2405

== ENCOUNTER 2024-01-20 14:29 | Observation (INO) | payer MEDICAID, SELFPAY ==
[~2024-01-20] VITALS: Ht 165.1 cm; Wt 82.8 kg
[2024-01-20 15:10] LABS: BASO % 0.3 % (0.0-1.0); EOS # 0.3 10^3/uL (0.0-0.5); EOS % 4.7 % (0.0-3.0); HEMATOCRIT 29.8 % (36.0-47.0); HEMOGLOBIN 10.1 g/dl (12.0-15.5); LYMPH # 1.6 10^3/uL (1.5-5.0); LYMPH % 27.1 % (24.0-44.0); MEAN CORPUSCULAR HEMOGLOBIN 32.2 pg (27.0-33.0); MEAN CORPUSCULAR HGB CONC 33.9 g/dl (32.0-36.5); MEAN CORPUSCULAR VOLUME 94.9 fl (80.0-96.0); MONO # 0.6 10^3/uL (0.0-0.8); MONO % 9.8 % (2.0-8.0); NEUTROPHILS # 3.3 10^3/uL (1.5-8.5); NEUTROPHILS % 57.4 % (36.0-66.0); PLATELET COUNT, AUTOMATED 225 10^3/uL (150-450); RED BLOOD COUNT 3.14 10^6/uL (4.00-5.40); WHITE BLOOD COUNT 5.8 10^3/uL (4.0-10.0)
[2024-01-20] MEDS: **hydrALAZINE** 50 MG TAB PO ONE (15:11)
[2024-01-20] MEDS: cloNIDine 0.1MG TABLET PO ONE (15:11)
[2024-01-20 15:38] LABS: LIPASE 126 U/L (12-53)
[2024-01-20 15:39] LABS: AMYLASE 114 U/L (30-118)
[2024-01-20 15:40] LABS: ALBUMIN 3.9 G/DL (3.2-5.2); ALKALINE PHOSPHATASE 110 U/L (35-104); ALT/SGPT 23 U/L (7.0-40); AST/SGOT 24 U/L (<34); BILIRUBIN,DIRECT < 0.1 MG/DL (<0.4); BILIRUBIN,TOTAL 0.2 MG/DL (0.3-1.2); BLOOD UREA NITROGEN 18 MG/DL (9-23); CALCIUM LEVEL 8.9 MG/DL (8.5-10.1); CARBON DIOXIDE LEVEL 32 MMOL/L (20-31); CHLORIDE LEVEL 101 MMOL/L (98-107); CREATININE FOR GFR 3.16 MG/DL (0.55-1.30); GLUCOSE, FASTING 97 MG/DL (60-100); POTASSIUM SERUM 3.8 MMOL/L (3.5-5.1); SODIUM LEVEL 137 MMOL/L (136-145); TOTAL PROTEIN 7.4 G/DL (5.7-8.2)
[2024-01-20 15:58] LABS: PROCALCITONIN 0.25 ng/ml
[2024-01-20] MEDS ORDERED: MINO10TA PO (16:02)
[2024-01-20] MEDS ORDERED: MINO2.5T PO (16:02)
[2024-01-20] MEDS: MORPHINE 2 MG/ML 1ML VIAL IV PRN (16:08)
[2024-01-20] MEDS ORDERED: ASPI81TA26 PO (17:30)
[2024-01-20] MEDS ORDERED: LEXA5TAB13 PO (17:31)
[2024-01-20] MEDS ORDERED: HYDR100T26 PO (17:31)
[2024-01-20] MEDS ORDERED: NOVO70VL SC (17:32)
[2024-01-20] MEDS ORDERED: HOME MED LIST COMPLETE! XX SCH (17:35)
[2024-01-20] MEDS: LevoFLOXacin IV 750 MG in IV 1 EA IV ONE (18:18)
[2024-01-20 18:47] LABS: CPK CREATINE PHOSPHOKINASE 96 U/L (34-145)
[2024-01-20] MEDS ORDERED: GLUCAGON INJ 1MG VIAL SC PRN (19:15)
[2024-01-20] MEDS ORDERED: GLUCOSE 4 GM CHEW PO PRN (19:15)
[2024-01-20] MEDS ORDERED: DEXTROSE 50% 50ML SYRINGE IV PRN (19:15)
[2024-01-20] MEDS ORDERED: CARVedilol 6.25 MG TAB PO SCH (21:00)
[2024-01-20] MEDS: INSULIN LISPRO (NovoLOG) PER UNIT SC SCH (21:00)
[2024-01-20] MEDS: hydrALAZINE 20MG/ML 1ML VIAL IV PRN (21:09)
[2024-01-20] MEDS: ACETAMINOPHEN 500 MG TAB PO PRN (21:10)
[2024-01-20] MEDS: ESCITALOPRAM OXALATE 5MG TABLET (LEXAPRO) PO SCH (21:44)
[2024-01-20] MEDS: CAPTOpril 6.25 MG PER 1/2 TABLET PO SCH (23:59)
[2024-01-21] VITALS (7 sets, daily range): BP systolic 114–176; BP diastolic 61–84; TEMP 97–98.1; O2SAT 94–97
[2024-01-21] MEDS: oxyCODONE 5MG TAB PO PRN (02:17)
[2024-01-21] MEDS: CYCLOBENZAPRINE 5MG TABLET PO PRN (04:03)
[2024-01-21] MEDS: ONDANSETRON 4MG 2ML VIAL IV ONE (04:58)
[2024-01-21] MEDS: HYDROMORPHONE HCL 0.5 MG/ 0.5 ML SYRINGE IV ONE (04:59)
[2024-01-21] MEDS: LIDOCAINE 5% (LIDODERM) PATCH TD SCH (05:04)
[2024-01-21] MEDS ORDERED: lisinopriL 40MG TAB PO SCH (09:00)
[2024-01-21] MEDS ORDERED: CAPTOpril 6.25 MG PER 1/2 TABLET PO SCH (09:00)
[2024-01-21] MEDS: INSULIN LISPRO (NovoLOG) PER UNIT SC SCH (09:41)
[2024-01-21] MEDS: ASPIRIN 81MG ENTERIC TABLET PO SCH (09:45)
[2024-01-21] MEDS: FUROSEMIDE 40 MG TAB PO SCH (09:45)
[2024-01-21] MEDS: CARVedilol 12.5 MG TAB PO SCH (09:45)
[2024-01-21] MEDS: **hydrALAZINE** 50 MG TAB PO SCH (09:46)
[2024-01-21] MEDS ORDERED: PILL CUTTER 1 EACH XX ONE (11:21)
[2024-01-21] MEDS ORDERED: ONDANSETRON 4MG 2ML VIAL IV PRN (12:30)
[2024-01-21] MEDS ORDERED: CARV12.5 PO (15:12)
[2024-01-21] MEDS ORDERED: CYCL5TAB4 PO (15:12)
[2024-01-22] VITALS (7 sets, daily range): BP systolic 129–196; BP diastolic 42–93; TEMP 98.1–98.8; O2SAT 92–96
[2024-01-22] MEDS ORDERED: HEPARIN 1,000UNITS/ML 10ML VIAL (FOR RADIOLOGY & DIALYSIS ONLY) IV PRN (06:00)
[2024-01-22] MEDS ORDERED: SODIUM CHLORIDE 0.9% 1000 ML IV PRN (06:00)
[2024-01-22] MEDS ORDERED: LIDOCAINE 1% SDV 5ML VIAL SC PRN (06:00)
[2024-01-22 06:02] LABS: HEMATOCRIT 28.6 % (36.0-47.0); HEMOGLOBIN 9.5 g/dl (12.0-15.5); MEAN CORPUSCULAR HEMOGLOBIN 32.2 pg (27.0-33.0); MEAN CORPUSCULAR HGB CONC 33.2 g/dl (32.0-36.5); MEAN CORPUSCULAR VOLUME 96.9 fl (80.0-96.0); PLATELET COUNT, AUTOMATED 197 10^3/uL (150-450); RED BLOOD COUNT 2.95 10^6/uL (4.00-5.40); WHITE BLOOD COUNT 5.3 10^3/uL (4.0-10.0)
[2024-01-22 06:29] LABS: CREATININE FOR GFR 6.34 MG/DL (0.55-1.30); GLOMERULAR FILTRATION RATE 7.2 (>51); POTASSIUM SERUM 4.6 MMOL/L (3.5-5.1)
[2024-01-22] MEDS: oxyCODONE 5MG TAB PO PRN (09:41)
[2024-01-22] MEDS: HEPARIN 1,000UNITS/ML 10ML VIAL (FOR RADIOLOGY & DIALYSIS ONLY) XX SCH (14:51)
[2024-01-22] MEDS ORDERED: OXYC-517 PO (18:36)
== END 2024-01-22 21:12 | disposition home or self-care (01) ==
LOC: EDBD 14:29 → M ED 14:29 → M ED INP 14:30 → M MSPAV 23:19
PROVIDERS: ADMIT Student in an Organized Health Care Education/Training Program; ATTEND Student in an Organized Health Care Education/Training Program
DX: M54.30 Sciatica, unspecified side (principal); I16.0 Hypertensive urgency; Z91.141 Patient's other noncompliance with medication regimen due to financial hardship; N18.6 End stage renal disease; Z99.2 Dependence on renal dialysis; M79.606 Pain in leg, unspecified; M62.830 Muscle spasm of back; R00.1 Bradycardia, unspecified; J90 Pleural effusion, not elsewhere classified; N28.1 Cyst of kidney, acquired; N32.89 Other specified disorders of bladder; M51.86 Other intervertebral disc disorders, lumbar region; M51.87 Other intervertebral disc disorders, lumbosacral region; E11.9 Type 2 diabetes mellitus without complications; D63.1 Anemia in chronic kidney disease; F32.A Depression, unspecified; R55 Syncope and collapse; Z95.828 Presence of other vascular implants and grafts; Z88.0 Allergy status to penicillin; Z79.899 Other long term (current) drug therapy; Z79.82 Long term (current) use of aspirin; Z79.4 Long term (current) use of insulin
CPT/HCPCS: 36415; 71045; 72131; 74176; 80047; 80048; 80076; 81001; 82150; 82550; 83605; 83690; 84145; 85025; 85027; 87040; 87086; 87486; 87581; 87633; 87798; 93005; 93041; 93971; 96374; 96375; 96376; 99285; J0360; J1171; J1815; J1956; J2405

== ENCOUNTER → 2024-02-25 | Outpatient (CLI) | payer MEDICAID ==
[~2024-02-25] MED LIST changes: +ASPI81TA26 PO; +CYCL5TAB4 PO; +LEXA5TAB13 PO; +MINO10TA PO; +NOVO70VL SC; +OXYC-517 PO
[2024-02-25 18:35] LABS: BASO % 0.3 % (0.0-1.0); EOS # 0.3 10^3/uL (0.0-0.5); EOS % 5.5 % (0.0-3.0); HEMATOCRIT 33.9 % (36.0-47.0); HEMOGLOBIN 11.3 g/dl (12.0-15.5); LYMPH # 1.7 10^3/uL (1.5-5.0); LYMPH % 29.8 % (24.0-44.0); MEAN CORPUSCULAR HEMOGLOBIN 32.4 pg (27.0-33.0); MEAN CORPUSCULAR HGB CONC 33.3 g/dl (32.0-36.5); MEAN CORPUSCULAR VOLUME 97.1 fl (80.0-96.0); MONO # 0.7 10^3/uL (0.0-0.8); MONO % 11.6 % (2.0-8.0); NEUTROPHILS % 52.3 % (36.0-66.0); PLATELET COUNT, AUTOMATED 241 10^3/uL (150-450); RED BLOOD COUNT 3.49 10^6/uL (4.00-5.40); WHITE BLOOD COUNT 5.8 10^3/uL (4.0-10.0)
[2024-02-25 18:41] LABS: HEMOGLOBIN A1c 5.5 % (4.0-6.0)
[2024-02-25 18:59] LABS: ALBUMIN 3.6 G/DL (3.2-5.2); ALKALINE PHOSPHATASE 122 U/L (35-104); ALT/SGPT 16 U/L (7.0-40); AST/SGOT 10 U/L (<34); BILIRUBIN,TOTAL < 0.2 MG/DL (0.3-1.2); BLOOD UREA NITROGEN 29 MG/DL (9-23); CALCIUM LEVEL 9.2 MG/DL (8.5-10.1); CARBON DIOXIDE LEVEL 32 MMOL/L (20-31); CHLORIDE LEVEL 97 MMOL/L (98-107); CHOLESTEROL LEVEL 88 MG/DL (<200); CHOLESTEROL RISK RATIO 2.35 (<5); CREATININE FOR GFR 5.17 MG/DL (0.55-1.30); GLOMERULAR FILTRATION RATE 9.1 (>51); GLUCOSE, FASTING 104 MG/DL (60-100); HDL CHOLESTEROL 37.4 MG/DL (>40); LDL CHOLESTEROL 11.2 MG/DL (<100); NON-HDL-C 50.6 MG/DL; POTASSIUM SERUM 4.3 MMOL/L (3.5-5.1); SODIUM LEVEL 136 MMOL/L (136-145); THYROID STIMULATING HORMONE 3.897 uIU/ML (0.55-4.78); TOTAL PROTEIN 6.7 G/DL (5.7-8.2); TRIGLYCERIDES LEVEL 197 MG/DL (<150)
[2024-02-25 19:00] LABS: FREE T4 1.42 NG/DL (0.89-1.76)
== END ==
LOC: M PLALAB 14:10
PROVIDERS: ATTEND Nurse Practitioner Family
DX: E78.5 Hyperlipidemia, unspecified (principal)

== ENCOUNTER → 2024-03-01 | Outpatient (CLI) | payer MEDICAID | LOC: M RAD 13:05 | PROVIDERS: ATTEND Nurse Practitioner Family | DX: E04.1 Nontoxic single thyroid nodule (principal) ==

== ENCOUNTER → 2024-03-31 | Outpatient (CLI) | payer MEDICAID, SELFPAY ==
[~2024-03-31] MED LIST changes: +PROHANCE 279.3MG/ML 15ML VIAL ONE
== END ==
LOC: M PLAIMG 07:24
PROVIDERS: ATTEND Internal Medicine Medical Oncology
DX: R93.89 Abnormal findings on diagnostic imaging of other specified body structures (principal)
CPT/HCPCS: 72197; A9576

== ENCOUNTER 2024-05-19 11:48 | Emergency (ER) | payer MEDICAID ==
[~2024-05-19] VITALS: Ht 165.1 cm; Wt 79.9 kg
[~2024-05-19 11:48] MED LIST changes: -PROHANCE 279.3MG/ML 15ML VIAL ONE
[2024-05-19 13:53] LABS: BASO % 0.6 % (0.0-1.0); EOS # 0.3 10^3/uL (0.0-0.5); EOS % 4.3 % (0.0-3.0); HEMATOCRIT 29.9 % (36.0-47.0); HEMOGLOBIN 10.1 g/dl (12.0-15.5); LYMPH # 1.5 10^3/uL (1.5-5.0); LYMPH % 22.5 % (24.0-44.0); MEAN CORPUSCULAR HEMOGLOBIN 30.8 pg (27.0-33.0); MEAN CORPUSCULAR HGB CONC 33.8 g/dl (32.0-36.5); MEAN CORPUSCULAR VOLUME 91.2 fl (80.0-96.0); MONO # 0.7 10^3/uL (0.0-0.8); MONO % 10.2 % (2.0-8.0); NEUTROPHILS # 4.2 10^3/uL (1.5-8.5); PLATELET COUNT, AUTOMATED 173 10^3/uL (150-450); RED BLOOD COUNT 3.28 10^6/uL (4.00-5.40); WHITE BLOOD COUNT 6.8 10^3/uL (4.0-10.0)
[2024-05-19 14:35] LABS: ALBUMIN 3.7 G/DL (3.2-5.2); BILIRUBIN,DIRECT 0.1 MG/DL (<0.4); BILIRUBIN,TOTAL 0.2 MG/DL (0.3-1.2); CALCIUM LEVEL 9.2 MG/DL (8.5-10.1); CREATININE FOR GFR 4.1 MG/DL (0.55-1.30); GLOMERULAR FILTRATION RATE 11.9 (>51); POTASSIUM SERUM 3.6 MMOL/L (3.5-5.1); TOTAL PROTEIN 6.8 G/DL (5.7-8.2)
[2024-05-19 14:36] LABS: FREE T4 1.46 NG/DL (0.89-1.76); THYROID STIMULATING HORMONE 4.196 uIU/ML (0.55-4.78)
[2024-05-19] MEDS: FUROSEMIDE 100MG/10ML VIAL IV ONE (16:42)
[2024-05-19 16:43] VITALS: BP 211/105
[2024-05-19] MEDS: hydrALAZINE 20MG/ML 1ML VIAL IV ONE (16:43)
[2024-05-19 19:40] VITALS: O2SAT 96
[2024-05-19 19:44] VITALS: BP 203/91; TEMP 98; O2SAT 96
== END 2024-05-19 19:53 | disposition home or self-care (01) ==
LOC: M ED 11:48
DX: I10 Essential (primary) hypertension (principal); I25.2 Old myocardial infarction; E11.9 Type 2 diabetes mellitus without complications; E78.5 Hyperlipidemia, unspecified; N18.6 End stage renal disease; Z88.0 Allergy status to penicillin; Z79.1 Long term (current) use of non-steroidal anti-inflammatories (NSAID); Z79.4 Long term (current) use of insulin; Z79.899 Other long term (current) drug therapy
CPT/HCPCS: 36415; 71046; 80048; 80076; 83690; 83880; 84439; 84443; 85025; 93005; 96374; 96375; 99285; J0360; J1940

== ENCOUNTER 2024-07-18 14:25 | Inpatient (IN) | payer MEDICAID ==
[~2024-07-18] VITALS: Ht 165.1 cm; Wt 79.5 kg
[2024-07-18 15:36] LABS: BASO % 0.4 % (0.0-1.0); EOS # 0.3 10^3/uL (0.0-0.5); EOS % 4.3 % (0.0-3.0); HEMATOCRIT 25.7 % (36.0-47.0); HEMOGLOBIN 8.6 g/dl (12.0-15.5); LYMPH # 1.2 10^3/uL (1.5-5.0); LYMPH % 16.7 % (24.0-44.0); MEAN CORPUSCULAR HEMOGLOBIN 32.5 pg (27.0-33.0); MEAN CORPUSCULAR HGB CONC 33.5 g/dl (32.0-36.5); MONO # 0.6 10^3/uL (0.0-0.8); MONO % 7.8 % (2.0-8.0); NEUTROPHILS # 4.9 10^3/uL (1.5-8.5); NEUTROPHILS % 70.4 % (36.0-66.0); PLATELET COUNT, AUTOMATED 185 10^3/uL (150-450); RED BLOOD COUNT 2.65 10^6/uL (4.00-5.40)
[2024-07-18 16:00] LABS: CALCIUM LEVEL 8.2 MG/DL (8.3-10.6); CREATININE FOR GFR 4.54 MG/DL (0.55-1.30); GLOMERULAR FILTRATION RATE 10.5 (>45); POTASSIUM SERUM 3.7 MMOL/L (3.5-5.1)
[2024-07-18] MEDS: LIDOCAINE 2% 5ML JELLY UROJET TOP ONE ×2 (16:30→17:15)
[2024-07-18] MEDS: ONDANSETRON 4MG 2ML VIAL IV ONE (16:56)
[2024-07-18] MEDS: MORPHINE 2 MG/ML 1ML VIAL IV PRN (16:56)
[2024-07-18] MEDS: FUROSEMIDE 40MG/4ML VIAL IV ONE (17:52)
[2024-07-18] MEDS: **hydrALAZINE** 50 MG TAB PO ONE (19:29)
[2024-07-18] MEDS: CARVedilol 12.5 MG TAB PO ONE (19:30)
[2024-07-18] MEDS ORDERED: CARV12.5 PO (19:32)
[2024-07-18] MEDS ORDERED: VELP5CHW PO (19:32)
[2024-07-18] MEDS ORDERED: HOME MED LIST COMPLETE! XX SCH (19:35)
[2024-07-18] MEDS: hydrALAZINE 20MG/ML 1ML VIAL IV STA (20:06)
[2024-07-18] MEDS ORDERED: **hydrALAZINE** 50 MG TAB PO SCH (21:00)
[2024-07-18] MEDS: FUROSEMIDE 20MG/2ML VIAL IV STA (21:18)
[2024-07-18 22:27] VITALS: BP 180/83; TEMP 97.5; O2SAT 96
[2024-07-18 22:29] VITALS: BP 171/81
[2024-07-18 22:40] VITALS: BP 168/80
[2024-07-18] MEDS: SIMVASTATIN 40 MG TAB PO SCH (23:20)
[2024-07-18] MEDS: ESCITALOPRAM OXALATE 5MG TABLET (LEXAPRO) PO SCH (23:20)
[2024-07-19 00:26] LABS: HEMATOCRIT 25.6 % (36.0-47.0); HEMOGLOBIN 8.4 g/dl (12.0-15.5); INR 1.14; MEAN CORPUSCULAR HEMOGLOBIN 32.3 pg (27.0-33.0); MEAN CORPUSCULAR HGB CONC 32.8 g/dl (32.0-36.5); MEAN CORPUSCULAR VOLUME 98.5 fl (80.0-96.0); PLATELET COUNT, AUTOMATED 171 10^3/uL (150-450); PROTHROMBIN TIME 14.9 SECONDS (12.5-14.5); WHITE BLOOD COUNT 6.6 10^3/uL (4.0-10.0)
[2024-07-19 00:29] LABS: BILIRUBIN,TOTAL 0.3 MG/DL (0.3-1.2); CALCIUM LEVEL 8.1 MG/DL (8.3-10.6); CREATININE FOR GFR 5.12 MG/DL (0.55-1.30); GLOMERULAR FILTRATION RATE 9.1 (>45); MAGNESIUM LEVEL 2.2 MG/DL (1.8-2.4); PHOSPHORUS LEVEL 2.7 MG/DL (2.4-5.1); POTASSIUM SERUM 3.4 MMOL/L (3.5-5.1); TOTAL PROTEIN 5.6 G/DL (5.7-8.2)
[2024-07-19 04:00] VITALS: BP 171/81; TEMP 97.7; O2SAT 96
[2024-07-19] MEDS ORDERED: DEXTROSE 50% 50ML SYRINGE IV PRN (05:10)
[2024-07-19] MEDS ORDERED: GLUCOSE 4 GM CHEW PO PRN (05:10)
[2024-07-19] MEDS ORDERED: GLUCAGON INJ 1MG VIAL SC PRN (05:10)
[2024-07-19 05:48] LABS: HEMATOCRIT 25.9 % (36.0-47.0); HEMOGLOBIN 8.3 g/dl (12.0-15.5); PLATELET COUNT, AUTOMATED 186 10^3/uL (150-450); RED BLOOD COUNT 2.59 10^6/uL (4.00-5.40); WHITE BLOOD COUNT 5.9 10^3/uL (4.0-10.0)
[2024-07-19 06:14] LABS: CALCIUM LEVEL 8.1 MG/DL (8.3-10.6); CREATININE FOR GFR 5.48 MG/DL (0.55-1.30); GLOMERULAR FILTRATION RATE 8.4 (>45); MAGNESIUM LEVEL 2.2 MG/DL (1.8-2.4); PHOSPHORUS LEVEL 3.2 MG/DL (2.4-5.1); POTASSIUM SERUM 3.7 MMOL/L (3.5-5.1)
[2024-07-19] MEDS: HEPARIN SOD (PORCINE) 5000UNITS/ML 1ML VIAL/SYRINGE SC SCH (06:36)
[2024-07-19] MEDS: INSULIN LISPRO (NovoLOG) PER UNIT SC SCH ×2 (07:30→21:00)
[2024-07-19] MEDS: NovoLOG MIX 70/30 PER UNIT SC SCH (09:16)
[2024-07-19] MEDS: FUROSEMIDE 40MG/4ML VIAL IV SCH (09:16)
[2024-07-19] MEDS: EZETIMIBE 10MG TABLET (ZETIA) PO SCH (09:16)
[2024-07-19] MEDS: **hydrALAZINE** 50 MG TAB PO SCH (09:25)
[2024-07-19] MEDS: ASPIRIN 81MG ENTERIC TABLET PO SCH (09:26)
[2024-07-19] MEDS: lisinopriL 40MG TAB PO SCH (09:26)
[2024-07-19] MEDS: CARVedilol 12.5 MG TAB PO SCH (09:26)
[2024-07-19] MEDS ORDERED: HEPARIN 1,000UNITS/ML 10ML VIAL (FOR RADIOLOGY & DIALYSIS ONLY) IV PRN (09:50)
[2024-07-19] MEDS ORDERED: LIDOCAINE 1% SDV 5ML VIAL SC PRN (09:50)
[2024-07-19] MEDS ORDERED: SODIUM CHLORIDE 0.9% 1000 ML IV PRN (09:50)
[2024-07-19 10:37] LABS: PROTEIN, URINE MANUAL REFLEX 3+ mg/dL (NEGATIVE)
[2024-07-19 10:38] LABS: KETONE, URINE MANUAL REFLEX 1+ mg/dL (NEGATIVE); UROBILINOGEN, UA MANUAL REFLEX NORMAL (NORMAL)
[2024-07-19 10:39] LABS: NITRITE, URINE MANUAL RFX TRACE (NEGATIVE)
[2024-07-19 10:40] LABS: SP GRAVITY,URINE MANUAL REFLEX 1.015 (1.002-1.035)
[2024-07-19 11:18] LABS: RBC, URINE MAN REFLEX TNTC /hpf (0-3)
[2024-07-19 11:21] LABS: HYALINE CAST, URINE RFX NONE SEEN /lpf (0-1); SQUAMOUS EPITHELIAL URINE RFX NONE SEEN /hpf (SMALL AMT)
[2024-07-19] MEDS: LORazepam 2 MG/ML 1ML VIAL IM STA (11:56)
[2024-07-19 12:37] LABS: MICROSCOPIC EXAM RFX PERFORMED
[2024-07-19 13:30] VITALS: BP 160/82; TEMP 97.8; O2SAT 96
[2024-07-19 20:33] VITALS: BP 172/70; TEMP 97.5; O2SAT 99
[2024-07-19] MEDS: ESCITALOPRAM OXALATE 10 MG TAB (LEXAPRO) PO SCH (21:30)
[2024-07-19 22:43] VITALS: BP 162/68
[2024-07-20 04:33] VITALS: BP 176/78; TEMP 97.9; O2SAT 96
[2024-07-20] MEDS ORDERED: LIDOCAINE 1% SDV 5ML VIAL SC PRN (06:00)
[2024-07-20] MEDS ORDERED: SODIUM CHLORIDE 0.9% 1000 ML IV PRN (06:00)
[2024-07-20] MEDS ORDERED: HEPARIN 1,000UNITS/ML 10ML VIAL (FOR RADIOLOGY & DIALYSIS ONLY) IV PRN (06:00)
[2024-07-20] MEDS ORDERED: HEPARIN 1,000UNITS/ML 10ML VIAL (FOR RADIOLOGY & DIALYSIS ONLY) XX SCH (06:00)
[2024-07-20 06:02] LABS: HEMATOCRIT 24.5 % (36.0-47.0); HEMOGLOBIN 8.1 g/dl (12.0-15.5); MEAN CORPUSCULAR HEMOGLOBIN 32.7 pg (27.0-33.0); MEAN CORPUSCULAR HGB CONC 33.1 g/dl (32.0-36.5); MEAN CORPUSCULAR VOLUME 98.8 fl (80.0-96.0); PLATELET COUNT, AUTOMATED 192 10^3/uL (150-450); RED BLOOD COUNT 2.48 10^6/uL (4.00-5.40); WHITE BLOOD COUNT 6.2 10^3/uL (4.0-10.0)
[2024-07-20 06:31] LABS: CREATININE FOR GFR 4.23 MG/DL (0.55-1.30); GLOMERULAR FILTRATION RATE 11.4 (>45)
[2024-07-20] MEDS: LORazepam 1 MG TAB PO PRN (08:55)
[2024-07-20] MEDS: HEPARIN 1,000UNITS/ML 10ML VIAL (FOR RADIOLOGY & DIALYSIS ONLY) XX SCH (09:00)
[2024-07-20 12:26] VITALS: BP 156/76; TEMP 97.7; O2SAT 96
[2024-07-20 20:39] VITALS: BP 186/78; TEMP 97.7; O2SAT 96
[2024-07-20 21:29] VITALS: BP 174/70
[2024-07-20] MEDS ORDERED: hydrALAZINE 20MG/ML 1ML VIAL IV STA (22:38)
[2024-07-20] MEDS: **hydrALAZINE** 10 MG TAB PO ONE (23:53)
[2024-07-21 01:25] VITALS: BP 159/75
[2024-07-21 04:16] VITALS: BP 163/76; TEMP 98.2; O2SAT 96
[2024-07-21 05:46] LABS: HEMOGLOBIN 8.8 g/dl (12.0-15.5); MEAN CORPUSCULAR HEMOGLOBIN 31.9 pg (27.0-33.0); MEAN CORPUSCULAR HGB CONC 32.6 g/dl (32.0-36.5); MEAN CORPUSCULAR VOLUME 97.8 fl (80.0-96.0); PLATELET COUNT, AUTOMATED 213 10^3/uL (150-450); RED BLOOD COUNT 2.76 10^6/uL (4.00-5.40); WHITE BLOOD COUNT 6.1 10^3/uL (4.0-10.0)
[2024-07-21] MEDS ORDERED: SODIUM CHLORIDE 0.9% 1000 ML IV PRN (06:00)
[2024-07-21] MEDS ORDERED: LIDOCAINE 1% SDV 5ML VIAL SC PRN (06:00)
[2024-07-21] MEDS ORDERED: HEPARIN 1,000UNITS/ML 10ML VIAL (FOR RADIOLOGY & DIALYSIS ONLY) IV PRN (06:00)
[2024-07-21 06:13] LABS: CALCIUM LEVEL 8.4 MG/DL (8.3-10.6); CREATININE FOR GFR 3.22 MG/DL (0.55-1.30); GLOMERULAR FILTRATION RATE 15.9 (>45)
[2024-07-21] MEDS: HEPARIN 1,000UNITS/ML 10ML VIAL (FOR RADIOLOGY & DIALYSIS ONLY) XX SCH (08:46)
[2024-07-21 10:55] LABS: PTH INTACT 320.4 PG/ML (18.5-88.0)
[2024-07-21 12:00] VITALS: BP 170/80; TEMP 97.7; O2SAT 91
[2024-07-21] MEDS: TORSEMIDE 100 MG TAB PO SCH (12:22)
[2024-07-21] MEDS: TAMSULOSIN 0.4 MG CAP PO SCH (12:23)
[2024-07-21 17:25] VITALS: BP 160/79; O2SAT 93
[2024-07-21 20:20] VITALS: BP 178/70; TEMP 97.7; O2SAT 98
[2024-07-21] MEDS: MIRALAX *UNIT DOSE* 17GM PACKET PO SCH (23:16)
[2024-07-21] MEDS: SENNA 8.6 MG TAB (SENOKOT) PO SCH (23:16)
[2024-07-21] MEDS: ACETAMINOPHEN 325 MG TAB PO PRN (23:18)
[2024-07-22] VITALS: BP 170/84; TEMP 97.6; O2SAT 98
[2024-07-22 05:11] VITALS: BP 163/78; TEMP 97.7; O2SAT 97
[2024-07-22 05:40] LABS: HEMATOCRIT 25.3 % (36.0-47.0); HEMOGLOBIN 8.4 g/dl (12.0-15.5); MEAN CORPUSCULAR HEMOGLOBIN 32.3 pg (27.0-33.0); MEAN CORPUSCULAR HGB CONC 33.2 g/dl (32.0-36.5); MEAN CORPUSCULAR VOLUME 97.3 fl (80.0-96.0); PLATELET COUNT, AUTOMATED 192 10^3/uL (150-450); WHITE BLOOD COUNT 5.6 10^3/uL (4.0-10.0)
[2024-07-22] MEDS ORDERED: HEPARIN 1,000UNITS/ML 10ML VIAL (FOR RADIOLOGY & DIALYSIS ONLY) IV PRN (06:00)
[2024-07-22] MEDS ORDERED: SODIUM CHLORIDE 0.9% 1000 ML IV PRN (06:00)
[2024-07-22 06:07] LABS: CALCIUM LEVEL 8.2 MG/DL (8.3-10.6); CREATININE FOR GFR 2.86 MG/DL (0.55-1.30); GLOMERULAR FILTRATION RATE 18.3 (>45); POTASSIUM SERUM 4.4 MMOL/L (3.5-5.1)
[2024-07-22] MEDS ORDERED: PILL CUTTER 1 EACH XX ONE (06:36)
[2024-07-22] MEDS: hydrOXYzine 50 MG TAB PO PRN (06:38)
[2024-07-22] MEDS: amLODIPine 5 MG TAB PO SCH (09:00)
[2024-07-22] MEDS: HEPARIN 1,000UNITS/ML 10ML VIAL (FOR RADIOLOGY & DIALYSIS ONLY) XX SCH (09:11)
[2024-07-22 12:30] VITALS: BP 166/76; TEMP 97.7; O2SAT 95
[2024-07-22 20:28] VITALS: BP 168/64; TEMP 97.7; O2SAT 95
[2024-07-22] MEDS: ROSUVASTATIN 10 MG TAB (CRESTOR) PO SCH (20:47)
[2024-07-23 04:30] VITALS: BP 140/70; TEMP 97.7; O2SAT 95
[2024-07-23 05:44] LABS: HEMATOCRIT 24.8 % (36.0-47.0); HEMOGLOBIN 8.2 g/dl (12.0-15.5); MEAN CORPUSCULAR HEMOGLOBIN 31.5 pg (27.0-33.0); MEAN CORPUSCULAR HGB CONC 33.1 g/dl (32.0-36.5); MEAN CORPUSCULAR VOLUME 95.4 fl (80.0-96.0); PLATELET COUNT, AUTOMATED 192 10^3/uL (150-450); WHITE BLOOD COUNT 4.8 10^3/uL (4.0-10.0)
[2024-07-23 06:16] LABS: CREATININE FOR GFR 2.73 MG/DL (0.55-1.30); GLOMERULAR FILTRATION RATE 19.3 (>45); POTASSIUM SERUM 3.7 MMOL/L (3.5-5.1)
[2024-07-23] MEDS ORDERED: ISOVUE-370 76% 100ML VIAL As Ordered ONE (10:13)
[2024-07-23 12:00] VITALS: BP 142/80; TEMP 97.5; O2SAT 98
[2024-07-23 18:36] VITALS: BP 122/86
[2024-07-23 21:32] VITALS: BP 176/78; TEMP 97.5; O2SAT 98
[2024-07-24] VITALS: BP 158/76
[2024-07-24 00:33] LABS: APPEARANCE, URINE HAZY (CLEAR); BACTERIA, URINE AUTO 1+ (NEGATIVE); BILIRUBIN, URINE AUTO NEGATIVE (NEGATIVE); BLOOD, URINE BLOOD 2+ (NEGATIVE); COLOR, URINE YELLOW (YELLOW); GLUCOSE, URINE (UA) AUTO 2+ mg/dL (NEGATIVE); KETONE, URINE AUTO NEGATIVE (NEGATIVE); LEUKOCYTE ESTERASE, URINE AUTO TRACE (NEGATIVE); NITRITE, URINE AUTO NEGATIVE (NEGATIVE); PROTEIN, URINE AUTO 3+ mg/dL (NEGATIVE); RBC, URINE AUTO TNTC /HPF (0-3); SPECIFIC GRAVITY URINE AUTO 1.014 (1.002-1.035); SQUAMOUS EPITHELIAL CELL UR AU 6 /HPF (0-6); UROBILINOGEN, URINE AUTO 0.2 mg/dL (0.0-2.0); WBC, URINE AUTO 33 /HPF (0-3)
[2024-07-24] MEDS ORDERED: GENTAMICIN 120 MG in D5W 50 ML IV SCH (03:30)
[2024-07-24] MEDS ORDERED: NS (Normal Saline) 0.9% 1,000 ML IV SCH (04:00)
[2024-07-24 05:13] LABS: HEMATOCRIT 25.4 % (36.0-47.0); HEMOGLOBIN 8.4 g/dl (12.0-15.5); MEAN CORPUSCULAR HEMOGLOBIN 31.7 pg (27.0-33.0); MEAN CORPUSCULAR HGB CONC 33.1 g/dl (32.0-36.5); MEAN CORPUSCULAR VOLUME 95.8 fl (80.0-96.0); PLATELET COUNT, AUTOMATED 190 10^3/uL (150-450); RED BLOOD COUNT 2.65 10^6/uL (4.00-5.40); WHITE BLOOD COUNT 5.6 10^3/uL (4.0-10.0)
[2024-07-24 05:41] LABS: CALCIUM LEVEL 8.4 MG/DL (8.3-10.6); CREATININE FOR GFR 4.36 MG/DL (0.55-1.30)
[2024-07-24] MEDS ORDERED: SODIUM CHLORIDE 0.9% 1000 ML IV PRN (06:00)
[2024-07-24] MEDS ORDERED: LIDOCAINE 1% SDV 5ML VIAL SC PRN (06:00)
[2024-07-24] MEDS ORDERED: HEPARIN 1,000UNITS/ML 10ML VIAL (FOR RADIOLOGY & DIALYSIS ONLY) IV PRN (06:00)
[2024-07-24] MEDS: CIPROFLOXACIN 400 MG in IV 1 EA IV SCH (06:09)
[2024-07-24 06:41] VITALS: BP 178/84; TEMP 97.5; O2SAT 98
[2024-07-24] MEDS: CYCLOBENZAPRINE 10MG TABLET PO PRN (06:44)
[2024-07-24] MEDS: HEPARIN 1,000UNITS/ML 10ML VIAL (FOR RADIOLOGY & DIALYSIS ONLY) XX SCH (10:19)
[2024-07-24] MEDS: DARBEPOETIN 100MCG/0.5ML *DIALYSIS* SYRINGE IV SCH (11:00)
[2024-07-24 12:00] VITALS: BP 136/81; TEMP 97.7; O2SAT 96
[2024-07-24] MEDS ORDERED: PERCOCET 5MG/325MG TAB PO PRN (20:30)
[2024-07-24 20:40] VITALS: BP 178/72; TEMP 98.1; O2SAT 93
[2024-07-25 05:27] VITALS: BP 186/76; TEMP 97.9; O2SAT 94
[2024-07-25] MEDS: **hydrALAZINE** 10 MG TAB PO STA (05:53)
[2024-07-25 05:59] LABS: CALCIUM LEVEL 9.1 MG/DL (8.3-10.6); CREATININE FOR GFR 3.61 MG/DL (0.55-1.30); GLOMERULAR FILTRATION RATE 13.8 (>45); HEMATOCRIT 27.6 % (36.0-47.0); HEMOGLOBIN 9.1 g/dl (12.0-15.5); MEAN CORPUSCULAR HEMOGLOBIN 32.3 pg (27.0-33.0); MEAN CORPUSCULAR VOLUME 97.9 fl (80.0-96.0); PLATELET COUNT, AUTOMATED 196 10^3/uL (150-450); POTASSIUM SERUM 4.3 MMOL/L (3.5-5.1); RED BLOOD COUNT 2.82 10^6/uL (4.00-5.40); WHITE BLOOD COUNT 5.3 10^3/uL (4.0-10.0)
[2024-07-25 06:45] VITALS: BP 178/78
[2024-07-25] MEDS ORDERED: HEPARIN 1,000UNITS/ML 10ML VIAL (FOR RADIOLOGY & DIALYSIS ONLY) IV PRN (10:45)
[2024-07-25] MEDS ORDERED: SODIUM CHLORIDE 0.9% 1000 ML IV PRN (10:45)
[2024-07-25] MEDS: HEPARIN 1,000UNITS/ML 10ML VIAL (FOR RADIOLOGY & DIALYSIS ONLY) XX SCH (12:43)
[2024-07-25 12:52] LABS: MAGNESIUM LEVEL 1.9 MG/DL (1.8-2.4)
[2024-07-25 16:00] VITALS: BP 152/74; TEMP 97.4; O2SAT 96
[2024-07-25 21:34] VITALS: BP 162/66; TEMP 97.7; O2SAT 98
[2024-07-25] MEDS: MIRTAZAPINE 7.5MG PER 1/2 TABLET PO SCH (22:01)
[2024-07-25] MEDS: clonazePAM 1 MG TAB PO SCH (22:02)
[2024-07-25 23:37] VITALS: BP 152/58
[2024-07-26 04:20] VITALS: BP 154/60; TEMP 98.2; O2SAT 93
[2024-07-26 04:33] LABS: HEMATOCRIT 25.5 % (36.0-47.0); HEMOGLOBIN 8.4 g/dl (12.0-15.5); MEAN CORPUSCULAR HEMOGLOBIN 32.3 pg (27.0-33.0); MEAN CORPUSCULAR HGB CONC 32.9 g/dl (32.0-36.5); MEAN CORPUSCULAR VOLUME 98.1 fl (80.0-96.0); PLATELET COUNT, AUTOMATED 166 10^3/uL (150-450)
[2024-07-26 05:08] LABS: CALCIUM LEVEL 8.3 MG/DL (8.3-10.6); CREATININE FOR GFR 5.18 MG/DL (0.55-1.30); MAGNESIUM LEVEL 2.1 MG/DL (1.8-2.4); POTASSIUM SERUM 4.4 MMOL/L (3.5-5.1)
[2024-07-26] MEDS ORDERED: HEPARIN 1,000UNITS/ML 10ML VIAL (FOR RADIOLOGY & DIALYSIS ONLY) XX SCH (06:00)
[2024-07-26] MEDS ORDERED: SODIUM CHLORIDE 0.9% 1000 ML IV PRN (06:00)
[2024-07-26] MEDS ORDERED: HEPARIN 1,000UNITS/ML 10ML VIAL (FOR RADIOLOGY & DIALYSIS ONLY) IV PRN (06:00)
[2024-07-26 12:00] VITALS: BP 171/74; TEMP 97.5; O2SAT 98
[2024-07-26 18:44] VITALS: BP 172/76
[2024-07-26 20:00] VITALS: BP 173/76; TEMP 97.8; O2SAT 94
[2024-07-27 04:00] VITALS: BP 168/71; TEMP 98.1; O2SAT 97
[2024-07-27] MEDS ORDERED: SODIUM CHLORIDE 0.9% 1000 ML IV PRN (06:00)
[2024-07-27] MEDS ORDERED: HEPARIN 1,000UNITS/ML 10ML VIAL (FOR RADIOLOGY & DIALYSIS ONLY) IV PRN (06:00)
[2024-07-27 07:41] VITALS: BP 136/59
[2024-07-27] MEDS: CARVedilol 12.5 MG TAB PO ONE (07:41)
[2024-07-27] MEDS: clonazePAM 0.5 MG TAB PO PRN (07:46)
[2024-07-27 08:55] LABS: CALCIUM LEVEL 8.7 MG/DL (8.3-10.6); CREATININE FOR GFR 3.91 MG/DL (0.55-1.30); GLOMERULAR FILTRATION RATE 12.6 (>45); POTASSIUM SERUM 4.2 MMOL/L (3.5-5.1)
[2024-07-27] MEDS: HEPARIN 1,000UNITS/ML 10ML VIAL (FOR RADIOLOGY & DIALYSIS ONLY) XX SCH (10:07)
[2024-07-27] MEDS ORDERED: TORS100T PO (11:24)
[2024-07-27] MEDS ORDERED: MIRT1TAB PO (11:24)
[2024-07-27] MEDS ORDERED: CLON1TAB8 PO (11:24)
[2024-07-27] MEDS ORDERED: AMLO1TAB24 PO (11:24)
[2024-07-27] MEDS ORDERED: CARV25TA PO (11:24)
[2024-07-27] MEDS ORDERED: MIRA3350 PO (11:24)
[2024-07-27] MEDS ORDERED: CLON0.5T2 PO (11:24)
[2024-07-27] MEDS ORDERED: CYCL5TAB4 PO (11:24)
[2024-07-27] MEDS ORDERED: CARVedilol 12.5 MG TAB PO SCH (21:00)
== END 2024-07-27 13:05 | disposition home or self-care (01) | DRG 199 ==
LOC: EDBD 14:25 → M ED 14:25 → M ED INP 14:26 → M MSPAV 22:02 → OBSVTOIN 07-20 07:55
PROVIDERS: ADMIT Student in an Organized Health Care Education/Training Program; ATTEND Internal Medicine
PROC: B246ZZZ Ultrasonography of Right and Left Heart (ICD-10-PCS; principal; 2024-07-19)
PROC: 5A1D70Z Performance of Urinary Filtration, Intermittent, Less than 6 Hours Per Day (ICD-10-PCS; 2024-07-20)
DX: I16.0 Hypertensive urgency (principal); J90 Pleural effusion, not elsewhere classified; N18.6 End stage renal disease; E11.22 Type 2 diabetes mellitus with diabetic chronic kidney disease; E78.5 Hyperlipidemia, unspecified; I12.0 Hypertensive chronic kidney disease with stage 5 chronic kidney disease or end stage renal disease; E66.9 Obesity, unspecified; N20.0 Calculus of kidney; F41.9 Anxiety disorder, unspecified; F32.A Depression, unspecified; D63.1 Anemia in chronic kidney disease; N30.91 Cystitis, unspecified with hematuria; R45.1 Restlessness and agitation; E87.70 Fluid overload, unspecified; T46.4X6A Underdosing of angiotensin-converting-enzyme inhibitors, initial encounter; R25.2 Cramp and spasm; Z99.2 Dependence on renal dialysis; Z68.31 Body mass index [BMI] 31.0-31.9, adult; Z79.4 Long term (current) use of insulin; Z79.82 Long term (current) use of aspirin; Z79.899 Other long term (current) drug therapy; Z88.0 Allergy status to penicillin; Z91.141 Patient's other noncompliance with medication regimen due to financial hardship

== ENCOUNTER → 2024-08-18 | Outpatient (CLI) | payer MEDICAID, SELFPAY ==
[~2024-08-18] MED LIST changes: +CARV25TA PO; +CLON0.5T2 PO; +CLON1TAB8 PO; +LISI40TA10 PO; -LISI40TA4 PO; +MED REC COMMENT; +MIRA3350 PO; +MIRT1TAB PO; +TORS100T PO; +VELP5CHW PO
[2024-08-18 12:08] LABS: BASO % 0.6 % (0.0-1.0); EOS # 0.5 10^3/uL (0.0-0.5); EOS % 8.2 % (0.0-3.0); HEMATOCRIT 40.5 % (36.0-47.0); HEMOGLOBIN 12.9 g/dl (12.0-15.5); LYMPH % 29.7 % (24.0-44.0); MEAN CORPUSCULAR HEMOGLOBIN 31.7 pg (27.0-33.0); MEAN CORPUSCULAR HGB CONC 31.9 g/dl (32.0-36.5); MEAN CORPUSCULAR VOLUME 99.5 fl (80.0-96.0); MONO # 0.7 10^3/uL (0.0-0.8); MONO % 11.1 % (2.0-8.0); NEUTROPHILS # 3.3 10^3/uL (1.5-8.5); NEUTROPHILS % 49.6 % (36.0-66.0); PLATELET COUNT, AUTOMATED 267 10^3/uL (150-450); RED BLOOD COUNT 4.07 10^6/uL (4.00-5.40); WHITE BLOOD COUNT 6.6 10^3/uL (4.0-10.0)
[2024-08-18 12:26] LABS: HEMOGLOBIN A1c 4.8 % (4.0-6.0)
[2024-08-18 12:59] LABS: ALBUMIN 3.9 G/DL (3.2-5.2); BILIRUBIN,TOTAL 0.2 MG/DL (0.3-1.2); CALCIUM LEVEL 9.8 MG/DL (8.3-10.6); CHOLESTEROL RISK RATIO 2.53 (<5); CREATININE FOR GFR 4.49 MG/DL (0.55-1.30); GLOMERULAR FILTRATION RATE 10.6 (>45); HDL CHOLESTEROL 50.4 MG/DL (>40); LDL CHOLESTEROL 54.6 MG/DL (<100); NON-HDL-C 77.6 MG/DL; POTASSIUM SERUM 3.9 MMOL/L (3.5-5.1); TOTAL PROTEIN 7.2 G/DL (5.7-8.2)
== END ==
LOC: M PLALAB 08:48
PROVIDERS: ATTEND Nurse Practitioner Family
DX: I10 Essential (primary) hypertension (principal)

== ENCOUNTER → 2024-09-15 | Outpatient (CLI) | payer MEDICAID, SELFPAY ==
[~2024-09-15] MED LIST changes: +MIDAZOLAM INJ 2 MG/2 ML VIAL IV PRN; +NS (Normal Saline) 0.9% 1,000 ML IV SCH; +fentaNYL 100 MCG/2 ML INJECTION IV PRN
[2024-09-15 13:35] VITALS: TEMP 97.4
[2024-09-15] MEDS: LABETALOL 100 MG/20 ML VIAL IV STA (14:42)
[2024-09-15] MEDS: ceFAZolin SODIUM 2 GM in DEXTROSE 5% (D5W) ADV/MINI-BAG 50 ML IV ONE (14:45)
[2024-09-15] MEDS: LIDOCAINE 1% MDV 20 ML VIAL SC SCH (15:18)
[2024-09-15] MEDS: HEPARIN 1,000 UNITS/ML 10 ML VIAL (FOR RADIOLOGY & DIALYSIS ONLY) IV PRN (15:18)
[2024-09-15 15:21] VITALS: BP 193/95
[2024-09-15] MEDS: LABETALOL 100 MG/20 ML VIAL IV ONE (15:21)
[2024-09-15 15:40] VITALS: BP 225/96
[2024-09-15 15:58] VITALS: O2SAT 95
== END ==
LOC: M IRPRO 13:23
PROVIDERS: ATTEND Internal Medicine Nephrology
DX: N18.6 End stage renal disease (principal)
CPT/HCPCS: 36581; J0690; J1920

== ENCOUNTER 2024-09-28 06:34 | Inpatient (IN) | payer MEDICAID ==
[~2024-09-28] VITALS: Ht 165.1 cm; Wt 83.6 kg
[~2024-09-28 06:34] MED LIST changes: -MED REC COMMENT; -MIDAZOLAM INJ 2 MG/2 ML VIAL IV PRN; -NS (Normal Saline) 0.9% 1,000 ML IV SCH; -fentaNYL 100 MCG/2 ML INJECTION IV PRN
[2024-09-28 08:44] LABS: BASO # 0.0 10^3/uL (0.0-0.2); BASO % 0.3 % (0.0-1.0); EOS # 0.2 10^3/uL (0.0-0.5); EOS % 2.1 % (0.0-3.0); LYMPH # 0.9 10^3/uL (1.5-5.0); LYMPH % 12.5 % (24.0-44.0); MONO # 0.5 10^3/uL (0.0-0.8); MONO % 6.5 % (2.0-8.0); NEUTROPHILS # 5.5 10^3/uL (1.5-8.5); NEUTROPHILS % 78.3 % (36.0-66.0); PLATELET COUNT, AUTOMATED 164 10^3/uL (150-450)
[2024-09-28 09:16] LABS: CALCIUM LEVEL 8.6 MG/DL (8.3-10.6); CARBON DIOXIDE LEVEL 26.0 MMOL/L (20-31); CHLORIDE LEVEL 92.0 MMOL/L (98-107); CREATININE FOR GFR 6.68 MG/DL (0.55-1.30); GLOMERULAR FILTRATION RATE 6.6 (>45); POTASSIUM SERUM 5.2 MMOL/L (3.5-5.1); SODIUM LEVEL 131.0 MMOL/L (136-145)
[2024-09-28] MEDS ORDERED: TORSEMIDE 100 MG TAB PO SCH (10:25)
[2024-09-28] MEDS: **hydrALAZINE** 50 MG TAB PO ONE (10:47)
[2024-09-28] MEDS: TORSEMIDE 100 MG TAB PO ONE (10:47)
[2024-09-28] MEDS: amLODIPine 5 MG TAB PO ONE (10:47)
[2024-09-28] MEDS ORDERED: GLUCOSE 4 GM CHEW PO PRN (13:15)
[2024-09-28] MEDS ORDERED: MOM 30 ML SUSPENSION UDC PO PRN (13:15)
[2024-09-28] MEDS ORDERED: DEXTROSE 50% 50 ML SYRINGE IV PRN (13:15)
[2024-09-28] MEDS ORDERED: GLUCAGON INJ 1 MG VIAL SC PRN (13:15)
[2024-09-28] MEDS ORDERED: SODIUM CHLORIDE 0.9% 1000 ML IV PRN (13:25)
[2024-09-28] MEDS ORDERED: HEPARIN 1,000 UNITS/ML 10 ML VIAL (FOR RADIOLOGY & DIALYSIS ONLY) IV PRN (13:25)
[2024-09-28] MEDS ORDERED: MED REC IN PROGRESS XX SCH (13:40)
[2024-09-28 14:39] LABS: ESTIMATED AVERAGE GLUCOSE 117.0 MG/DL (60-110)
[2024-09-28] MEDS: HEPARIN 1,000 UNITS/ML 10 ML VIAL (FOR RADIOLOGY & DIALYSIS ONLY) XX SCH (15:32)
[2024-09-28] MEDS: clonazePAM 0.5 MG TAB PO PRN (15:45)
[2024-09-28 18:24] VITALS: BP 189/87; TEMP 97.9; O2SAT 94
[2024-09-28] MEDS: INSULIN LISPRO (NovoLOG) PER UNIT SC SCH ×2 (18:41→21:00)
[2024-09-28] MEDS: HEPARIN SOD 5000 UNITS/ML 1 ML VIAL/SYRINGE SC SCH (18:55)
[2024-09-28] MEDS ORDERED: HOME MED LIST COMPLETE! XX SCH (19:10)
[2024-09-28] MEDS ORDERED: MED REC COMMENT (19:10)
[2024-09-28] MEDS: ACETAMINOPHEN 325 MG TAB PO PRN (19:15)
[2024-09-28 19:26] VITALS: BP 181/84; TEMP 98.5; O2SAT 95
[2024-09-28] MEDS ORDERED: CYCLOBENZAPRINE 5 MG TABLET PO PRN (20:10)
[2024-09-28] MEDS: MIRTAZAPINE 7.5 MG PER 1/2 TABLET PO SCH (21:27)
[2024-09-28] MEDS: DOCUSATE SODIUM 100 MG CAPSULE PO SCH (21:27)
[2024-09-28] MEDS: SIMVASTATIN 40 MG TAB PO SCH (21:27)
[2024-09-28] MEDS: **hydrALAZINE** 50 MG TAB PO SCH (21:28)
[2024-09-29] VITALS (10 sets, daily range): BP systolic 54–218; BP diastolic 60–106; TEMP 97.6–98.2; O2SAT 92–99
[2024-09-29 04:29] LABS: BASO # 0.0 10^3/uL (0.0-0.2); BASO % 0.5 % (0.0-1.0); EOS # 0.2 10^3/uL (0.0-0.5); EOS % 5.7 % (0.0-3.0); LYMPH # 1.0 10^3/uL (1.5-5.0); LYMPH % 25.4 % (24.0-44.0); MONO # 0.5 10^3/uL (0.0-0.8); MONO % 11.1 % (2.0-8.0); NEUTROPHILS # 2.3 10^3/uL (1.5-8.5); NEUTROPHILS % 57.1 % (36.0-66.0); PLATELET COUNT, AUTOMATED 138 10^3/uL (150-450)
[2024-09-29 04:57] LABS: CALCIUM LEVEL 7.9 MG/DL (8.3-10.6); CARBON DIOXIDE LEVEL 29.0 MMOL/L (20-31); CHLORIDE LEVEL 96.0 MMOL/L (98-107); CREATININE FOR GFR 4.48 MG/DL (0.55-1.30); GLOMERULAR FILTRATION RATE 10.7 (>45); MAGNESIUM LEVEL 2.0 MG/DL (1.8-2.4); POTASSIUM SERUM 4.2 MMOL/L (3.5-5.1); SODIUM LEVEL 134.0 MMOL/L (136-145)
[2024-09-29] MEDS ORDERED: HEPARIN 1,000 UNITS/ML 10 ML VIAL (FOR RADIOLOGY & DIALYSIS ONLY) IV PRN (09:40)
[2024-09-29] MEDS ORDERED: SODIUM CHLORIDE 0.9% 1000 ML IV PRN (09:40)
[2024-09-29] MEDS: ASPIRIN 81 MG ENTERIC TABLET PO SCH (14:55)
[2024-09-29] MEDS: MIRALAX *UNIT DOSE* 17 GM PACKET PO SCH (14:55)
[2024-09-29] MEDS: amLODIPine 5 MG TAB PO SCH (14:56)
[2024-09-29] MEDS: EZETIMIBE 10 MG TABLET PO SCH (14:56)
[2024-09-29] MEDS: TORSEMIDE 100 MG TAB PO SCH (14:57)
[2024-09-29] MEDS: hydrALAZINE 20 MG/ML 1 ML VIAL IV STA (16:24)
[2024-09-30] VITALS (7 sets, daily range): BP systolic 142–196; BP diastolic 68–106; TEMP 97.3–98; O2SAT 92–98
[2024-09-30] MEDS ORDERED: HEPARIN 1,000 UNITS/ML 10 ML VIAL (FOR RADIOLOGY & DIALYSIS ONLY) XX SCH (06:00)
[2024-09-30] MEDS ORDERED: SODIUM CHLORIDE 0.9% 1000 ML IV PRN (06:00)
[2024-09-30] MEDS ORDERED: HEPARIN 1,000 UNITS/ML 10 ML VIAL (FOR RADIOLOGY & DIALYSIS ONLY) IV PRN (06:00)
[2024-09-30 06:11] LABS: BASO # 0.0 10^3/uL (0.0-0.2); BASO % 0.5 % (0.0-1.0); EOS # 0.3 10^3/uL (0.0-0.5); EOS % 8.1 % (0.0-3.0); LYMPH # 1.2 10^3/uL (1.5-5.0); LYMPH % 27.7 % (24.0-44.0); MONO # 0.6 10^3/uL (0.0-0.8); MONO % 13.8 % (2.0-8.0); NEUTROPHILS # 2.1 10^3/uL (1.5-8.5); NEUTROPHILS % 49.7 % (36.0-66.0); PLATELET COUNT, AUTOMATED 164 10^3/uL (150-450)
[2024-09-30 06:42] LABS: CALCIUM LEVEL 8.3 MG/DL (8.3-10.6); CARBON DIOXIDE LEVEL 28.0 MMOL/L (20-31); CHLORIDE LEVEL 96.0 MMOL/L (98-107); CREATININE FOR GFR 3.95 MG/DL (0.55-1.30); GLOMERULAR FILTRATION RATE 12.4 (>45); MAGNESIUM LEVEL 2.1 MG/DL (1.8-2.4); POTASSIUM SERUM 4.2 MMOL/L (3.5-5.1); SODIUM LEVEL 136.0 MMOL/L (136-145)
[2024-09-30] MEDS: MAALOX 30 ML SUSP *UDC PO PRN (07:59)
[2024-09-30] MEDS: HEPARIN 1,000 UNITS/ML 10 ML VIAL (FOR RADIOLOGY & DIALYSIS ONLY) XX SCH (09:08)
[2024-09-30] MEDS: hydrALAZINE 20 MG/ML 1 ML VIAL IV STA (12:42)
[2024-09-30] MEDS ORDERED: hydrALAZINE 20 MG/ML 1 ML VIAL IV ONE (15:00)
== END 2024-09-30 15:43 | disposition home or self-care (01) | DRG 251 ==
LOC: M ED 06:34 → M ED INP 06:35 → OBSVTOIN 13:37 → M PCU 13:59
PROVIDERS: ADMIT Internal Medicine; ATTEND Internal Medicine
PROC: 5A1D70Z Performance of Urinary Filtration, Intermittent, Less than 6 Hours Per Day (ICD-10-PCS; principal; 2024-09-28)
DX: R10.9 Unspecified abdominal pain (principal); J90 Pleural effusion, not elsewhere classified; N18.6 End stage renal disease; E11.22 Type 2 diabetes mellitus with diabetic chronic kidney disease; I12.0 Hypertensive chronic kidney disease with stage 5 chronic kidney disease or end stage renal disease; E87.5 Hyperkalemia; E66.9 Obesity, unspecified; E78.5 Hyperlipidemia, unspecified; F41.9 Anxiety disorder, unspecified; F32.A Depression, unspecified; Z90.79 Acquired absence of other genital organ(s); Z79.82 Long term (current) use of aspirin; Z79.899 Other long term (current) drug therapy; Z88.0 Allergy status to penicillin; Z99.2 Dependence on renal dialysis; D64.9 Anemia, unspecified

== ENCOUNTER 2024-10-10 15:34 | Inpatient (IN) | payer MEDICAID ==
[~2024-10-10 15:34] MED LIST changes: +MED REC COMMENT
[2024-10-10 16:22] LABS: BASO # 0.0 10^3/uL (0.0-0.2); BASO % 0.6 % (0.0-1.0); EOS # 0.2 10^3/uL (0.0-0.5); EOS % 4.1 % (0.0-3.0); LYMPH # 1.0 10^3/uL (1.5-5.0); LYMPH % 20.5 % (24.0-44.0); MONO # 0.3 10^3/uL (0.0-0.8); MONO % 7.0 % (2.0-8.0); NEUTROPHILS # 3.3 10^3/uL (1.5-8.5); NEUTROPHILS % 67.4 % (36.0-66.0); PLATELET COUNT, AUTOMATED 175 10^3/uL (150-450)
[2024-10-10 16:40] LABS: INR 1.01
[2024-10-10 16:53] LABS: ALT/SGPT 28.0 U/L (7.0-40); AST/SGOT 25.0 U/L (<34); CALCIUM LEVEL 8.5 MG/DL (8.3-10.6); CARBON DIOXIDE LEVEL 32.0 MMOL/L (20-31); CHLORIDE LEVEL 95.0 MMOL/L (98-107); CREATININE FOR GFR 4.27 MG/DL (0.55-1.30); GLOMERULAR FILTRATION RATE 11.3 (>45); POTASSIUM SERUM 3.6 MMOL/L (3.5-5.1); SODIUM LEVEL 137.0 MMOL/L (136-145)
[2024-10-10] MEDS: MORPHINE 4 MG/ML 1 ML VIAL IV ONE ×2 (17:10→18:12)
[2024-10-10] MEDS: **hydrALAZINE** 50 MG TAB PO ONE (17:11)
[2024-10-10 17:28] LABS: CK-MB VALUE MASS 3.4 NG/ML (<3.6)
[2024-10-10 17:29] LABS: CPK CREATINE PHOSPHOKINASE 80.0 U/L (34-145); MB/CK RELATIVE INDEX 4.25 (< OR =4)
[2024-10-10] MEDS ORDERED: HOME MED LIST COMPLETE! XX SCH (17:55)
[2024-10-10 17:56] LABS: CK-MB VALUE MASS 2.8 NG/ML (<3.6)
[2024-10-10 18:01] LABS: CPK CREATINE PHOSPHOKINASE 79.0 U/L (34-145); MB/CK RELATIVE INDEX 3.54 (< OR =4)
[2024-10-10] MEDS: hydrALAZINE 20 MG/ML 1 ML VIAL IV ONE (18:13)
[2024-10-10] MEDS: MORPHINE 4 MG/ML 1 ML VIAL IV PRN (19:41)
[2024-10-10] MEDS: LABETALOL 100 MG/20 ML VIAL IV STA (19:41)
[2024-10-10] MEDS ORDERED: hydrALAZINE 20 MG/ML 1 ML VIAL IV PRN (20:45)
[2024-10-10] MEDS ORDERED: ACETAMINOPHEN 325 MG TAB PO PRN (21:30)
[2024-10-10] MEDS ORDERED: ISOVUE-370 76% 100 ML VIAL As Ordered ONE (21:31)
[2024-10-10] MEDS: SIMVASTATIN 40 MG TAB PO SCH (21:55)
[2024-10-10] MEDS: ACETAMINOPHEN 500 MG TAB PO SCH (21:56)
[2024-10-10 23:40] VITALS: BP 194/88; TEMP 97.3; O2SAT 95
[2024-10-11 03:29] VITALS: BP 174/82; TEMP 97.9; O2SAT 97
[2024-10-11 05:28] LABS: PLATELET COUNT, AUTOMATED 159 10^3/uL (150-450)
[2024-10-11 05:50] LABS: CALCIUM LEVEL 8.6 MG/DL (8.3-10.6); CARBON DIOXIDE LEVEL 30.0 MMOL/L (20-31); CHLORIDE LEVEL 94.0 MMOL/L (98-107); CREATININE FOR GFR 5.51 MG/DL (0.55-1.30); GLOMERULAR FILTRATION RATE 8.3 (>45); POTASSIUM SERUM 4.0 MMOL/L (3.5-5.1); SODIUM LEVEL 136.0 MMOL/L (136-145)
[2024-10-11] MEDS: ONDANSETRON 4MG 2ML VIAL IV ONE (05:53)
[2024-10-11 08:00] VITALS: BP 190/90; TEMP 97.5; O2SAT 98
[2024-10-11] MEDS: EZETIMIBE 10 MG TABLET PO SCH (08:17)
[2024-10-11] MEDS: PROMETHAZINE 25MG/ML 1ML VIAL IV ONE (08:18)
[2024-10-11] MEDS: HEPARIN SOD 5000 UNITS/ML 1 ML VIAL/SYRINGE SC SCH (08:18)
[2024-10-11] MEDS: **hydrALAZINE** 50 MG TAB PO ONE (08:18)
[2024-10-11] MEDS: ASPIRIN 81 MG ENTERIC TABLET PO SCH (08:18)
[2024-10-11] MEDS ORDERED: **hydrALAZINE** 50 MG TAB PO SCH (09:00)
[2024-10-11] MEDS ORDERED: HEPARIN 1,000 UNITS/ML 10 ML VIAL (FOR RADIOLOGY & DIALYSIS ONLY) IV PRN (09:35)
[2024-10-11] MEDS ORDERED: SODIUM CHLORIDE 0.9% 1000 ML IV PRN (09:35)
[2024-10-11] MEDS: LABETALOL 100 MG/20 ML VIAL IV PRN (09:40)
[2024-10-11] MEDS: clonazePAM 0.5 MG TAB PO ONE (11:10)
[2024-10-11 12:30] VITALS: BP 181/88; TEMP 97.7; O2SAT 99
[2024-10-11] MEDS: SEVELAMER *CARBONate* 800 MG TAB PO SCH (12:30)
[2024-10-11] MEDS: **hydrALAZINE** 50 MG TAB PO SCH (15:58)
[2024-10-11] MEDS: RIZATRIPTAN BENZOATE 10 MG TAB PO ONE (15:58)
[2024-10-11] MEDS: ISOSORBIDE DINITRATE 20 MG TAB PO ONE (15:58)
[2024-10-11 16:00] VITALS: BP 175/85; TEMP 98.1; O2SAT 95
[2024-10-11] MEDS: FIORICET TAB PO ONE (16:04)
[2024-10-11] MEDS ORDERED: LOSARTAN 50 MG TABLET PO ONE (17:55)
[2024-10-11 18:30] VITALS: BP 180/90
[2024-10-11] MEDS: ISOSORBIDE MONONITRATE 10 MG TABLET PO ONE (18:56)
[2024-10-11 20:13] VITALS: BP 152/60; O2SAT 97
[2024-10-11] MEDS: amLODIPine 10 MG TAB PO SCH (21:04)
[2024-10-12] VITALS (7 sets, daily range): BP systolic 128–188; BP diastolic 60–76; TEMP 97.6–99.5; O2SAT 92–99
[2024-10-12] MEDS ORDERED: SODIUM CHLORIDE 0.9% 1000 ML IV PRN (06:00)
[2024-10-12] MEDS ORDERED: HEPARIN 1,000 UNITS/ML 10 ML VIAL (FOR RADIOLOGY & DIALYSIS ONLY) XX SCH (06:00)
[2024-10-12] MEDS ORDERED: HEPARIN 1,000 UNITS/ML 10 ML VIAL (FOR RADIOLOGY & DIALYSIS ONLY) IV PRN (06:00)
[2024-10-12 07:51] LABS: PLATELET COUNT, AUTOMATED 174 10^3/uL (150-450)
[2024-10-12 08:22] LABS: CALCIUM LEVEL 8.3 MG/DL (8.3-10.6); CARBON DIOXIDE LEVEL 29.0 MMOL/L (20-31); CHLORIDE LEVEL 94.0 MMOL/L (98-107); CREATININE FOR GFR 4.85 MG/DL (0.55-1.30); GLOMERULAR FILTRATION RATE 9.7 (>45); POTASSIUM SERUM 4.3 MMOL/L (3.5-5.1); SODIUM LEVEL 133.0 MMOL/L (136-145)
[2024-10-12] MEDS ORDERED: LOSARTAN 50 MG TABLET PO SCH (09:00)
[2024-10-12] MEDS: clonazePAM 0.5 MG TAB PO SCH (13:57)
[2024-10-12] MEDS: HEPARIN 1,000 UNITS/ML 10 ML VIAL (FOR RADIOLOGY & DIALYSIS ONLY) XX SCH (14:27)
[2024-10-12] MEDS: ISOSORBIDE MONONITRATE 30 MG XR TAB PO SCH (16:55)
[2024-10-13] VITALS (7 sets, daily range): BP systolic 111–180; BP diastolic 56–82; TEMP 97.2–99.1; O2SAT 94–97
[2024-10-13] MEDS ORDERED: SODIUM CHLORIDE 0.9% 1000 ML IV PRN (06:00)
[2024-10-13] MEDS ORDERED: HEPARIN 1,000 UNITS/ML 10 ML VIAL (FOR RADIOLOGY & DIALYSIS ONLY) IV PRN (06:00)
[2024-10-13 06:39] LABS: PLATELET COUNT, AUTOMATED 199 10^3/uL (150-450)
[2024-10-13 07:16] LABS: CALCIUM LEVEL 8.2 MG/DL (8.3-10.6); CARBON DIOXIDE LEVEL 29.0 MMOL/L (20-31); CHLORIDE LEVEL 97.0 MMOL/L (98-107); CREATININE FOR GFR 3.51 MG/DL (0.55-1.30); GLOMERULAR FILTRATION RATE 14.3 (>45); POTASSIUM SERUM 4.0 MMOL/L (3.5-5.1); SODIUM LEVEL 138.0 MMOL/L (136-145)
[2024-10-13] MEDS: HEPARIN 1,000 UNITS/ML 10 ML VIAL (FOR RADIOLOGY & DIALYSIS ONLY) XX SCH (09:06)
[2024-10-14] MEDS ORDERED: HEPARIN 1,000 UNITS/ML 10 ML VIAL (FOR RADIOLOGY & DIALYSIS ONLY) XX SCH (00:05)
[2024-10-14] MEDS ORDERED: SODIUM CHLORIDE 0.9% 1000 ML IV PRN (00:05)
[2024-10-14 03:45] VITALS: BP 168/77; TEMP 97.7; O2SAT 96
[2024-10-14 06:39] LABS: PLATELET COUNT, AUTOMATED 220 10^3/uL (150-450)
[2024-10-14 07:16] LABS: CALCIUM LEVEL 9.1 MG/DL (8.3-10.6); CARBON DIOXIDE LEVEL 29.0 MMOL/L (20-31); CHLORIDE LEVEL 94.0 MMOL/L (98-107); CREATININE FOR GFR 3.22 MG/DL (0.55-1.30); GLOMERULAR FILTRATION RATE 15.9 (>45); POTASSIUM SERUM 3.6 MMOL/L (3.5-5.1); SODIUM LEVEL 136.0 MMOL/L (136-145)
[2024-10-14 08:00] VITALS: BP 171/77; TEMP 97; O2SAT 93
[2024-10-14 11:00] VITALS: BP 163/76; TEMP 97.6; O2SAT 97
[2024-10-14] MEDS: ISOSORBIDE MONONITRATE 30 MG XR TAB PO ONE (11:02)
[2024-10-14] MEDS: FIORICET TAB PO ONE (11:47)
[2024-10-14] MEDS: HEPARIN 1,000 UNITS/ML 10 ML VIAL (FOR RADIOLOGY & DIALYSIS ONLY) IV PRN (14:37)
[2024-10-14 16:00] VITALS: BP 124/65
[2024-10-14] MEDS: ONDANSETRON 4MG TAB PO PRN (18:14)
[2024-10-14 19:20] VITALS: BP 178/80; TEMP 97.4; O2SAT 98
[2024-10-14 22:07] VITALS: BP 161/74
[2024-10-15] VITALS (9 sets, daily range): BP systolic 127–189; BP diastolic 59–89; TEMP 97.1–99.2; O2SAT 96–100
[2024-10-15 07:02] LABS: PLATELET COUNT, AUTOMATED 200 10^3/uL (150-450)
[2024-10-15 07:38] LABS: CALCIUM LEVEL 8.9 MG/DL (8.3-10.6); CARBON DIOXIDE LEVEL 24.0 MMOL/L (20-31); CHLORIDE LEVEL 100.0 MMOL/L (98-107); CREATININE FOR GFR 3.22 MG/DL (0.55-1.30); GLOMERULAR FILTRATION RATE 15.9 (>45); POTASSIUM SERUM 4.4 MMOL/L (3.5-5.1); SODIUM LEVEL 135.0 MMOL/L (136-145)
[2024-10-15] MEDS: ISOSORBIDE MONONITRATE 60 MG XR TAB PO ONE (11:33)
[2024-10-15] MEDS: MORPHINE 2 MG/ML 1 ML VIAL IV ONE (11:34)
[2024-10-15] MEDS: ACETAMINOPHEN 500 MG TAB PO ONE (11:35)
[2024-10-15] MEDS: RIZATRIPTAN BENZOATE 10 MG TAB PO ONE (11:35)
[2024-10-15 19:27] LABS: ALT/SGPT 14 U/L (7.0-40); AST/SGOT 14 U/L (<34)
[2024-10-16 03:50] VITALS: BP 134/63; TEMP 98.8; O2SAT 92
[2024-10-16 07:49] LABS: PLATELET COUNT, AUTOMATED 203 10^3/uL (150-450)
[2024-10-16 08:02] VITALS: BP 142/63; TEMP 99.1; O2SAT 95
[2024-10-16 08:47] LABS: ALT/SGPT 13 U/L (7.0-40); AST/SGOT 12 U/L (<34); CALCIUM LEVEL 8.4 MG/DL (8.3-10.6); CARBON DIOXIDE LEVEL 25 MMOL/L (20-31); CHLORIDE LEVEL 97 MMOL/L (98-107); CREATININE FOR GFR 5.01 MG/DL (0.55-1.30); GLOMERULAR FILTRATION RATE 9.3 (>45); POTASSIUM SERUM 4.2 MMOL/L (3.5-5.1); SODIUM LEVEL 132 MMOL/L (136-145)
[2024-10-16 09:29] VITALS: BP 142/65
[2024-10-16] MEDS: ISOSORBIDE MONONITRATE 60 MG XR TAB PO SCH (09:29)
[2024-10-16] MEDS ORDERED: ISOS120T7 PO (11:36)
[2024-10-16] MEDS ORDERED: AMLO-751 PO (11:36)
[2024-10-16] MEDS ORDERED: CORE25TA PO (11:36)
[2024-10-16 12:00] VITALS: BP 153/73; TEMP 97.8; O2SAT 99
== END 2024-10-16 13:41 | disposition home health service (06) | DRG 199 ==
LOC: M ED 15:34 → EDBD 15:34 → M ED INP 21:28 → M PCU 23:40 → M MS4PR 10-12 00:32
PROVIDERS: ADMIT Student in an Organized Health Care Education/Training Program; ATTEND General Practice
PROC: 5A1D70Z Performance of Urinary Filtration, Intermittent, Less than 6 Hours Per Day (ICD-10-PCS; 2024-10-10)
PROC: B246ZZZ Ultrasonography of Right and Left Heart (ICD-10-PCS; principal; 2024-10-11)
DX: I16.0 Hypertensive urgency (principal); J90 Pleural effusion, not elsewhere classified; I31.39 Other pericardial effusion (noninflammatory); N18.6 End stage renal disease; E11.22 Type 2 diabetes mellitus with diabetic chronic kidney disease; E87.70 Fluid overload, unspecified; I12.0 Hypertensive chronic kidney disease with stage 5 chronic kidney disease or end stage renal disease; R09.02 Hypoxemia; J98.11 Atelectasis; E78.5 Hyperlipidemia, unspecified; F41.9 Anxiety disorder, unspecified; D63.1 Anemia in chronic kidney disease; F32.A Depression, unspecified; E66.9 Obesity, unspecified; Z68.30 Body mass index [BMI] 30.0-30.9, adult; Z99.2 Dependence on renal dialysis; Z79.82 Long term (current) use of aspirin; Z79.899 Other long term (current) drug therapy; Z88.0 Allergy status to penicillin; Z91.141 Patient's other noncompliance with medication regimen due to financial hardship